=== PATIENT | female | born 1955 | race Caucasian/White ===

== ENCOUNTER 2021-07-28 11:46 | Outpatient (REF) | payer MEDICARE, MEDICAID, SELFPAY ==
[2021-07-28 12:04] LABS: MANUAL DIFF FLAG NO
[2021-07-28 12:29] LABS: Basophils Percent Auto 0.4 % (0-2); Eosinophils Absolute Auto 0.1 X10*3/uL (0.0-0.4); Eosinophils Percent Auto 1.5 % (0-4); Hematocrit 40.4 % (37.0-47.0); Hemoglobin 13.4 g/dl (12.0-16.0); Imm Gran Abs Auto 0.04 X10*3/uL (0.00-0.03); Imm Gran Pct Auto 0.5 % (0.0-0.4); Lymphocytes Absolute Auto 1.4 X10*3/uL (1.2-4.9); Lymphocytes Percent Auto 16.5 % (20-40); Mean Corpuscular HGB Conc 33.2 g/dl (31.0-35.0); Mean Corpuscular Hemoglobin 29.6 pg (27.0-33.0); Mean Corpuscular Volume 89.4 fL (80.0-98.0); Mean Platelet Volume 10.5 fL (9.4-12.3); Monocytes Absolute Auto 0.6 X10*3/uL (0.1-1.2); Monocytes Percent Auto 6.7 % (2-11); Neutrophils Absolute Auto 6.3 x10*3/uL (2.0-8.3); Neutrophils Percent Auto 74.4 % (45-73); Platelet Count 200 X10*3/uL (160-400); Red Blood Count 4.52 X10*6/uL (4.20-5.50); White Blood Count 8.5 X10*3/uL (4.8-10.8)
[2021-07-28 13:03] LABS: Alanine Aminotransferase 17 U/L (0-31); Albumin Level 4.5 g/dL (3.5-5.0); Alkaline Phosphatase 69 U/L (39-117); Anion Gap 10 (12-20); Aspartate Amino Transferase 17 U/L (5-31); Bilirubin Total 0.6 mg/dL (0.0-1.0); Blood Urea Nitrogen 13 mg/dL (9-16); Carbon Dioxide 31 mmol/L (22-29); Chloride 106 mmol/L (96-108); Cholesterol 179 mg/dL; Estimated Glomerular Filt Rate > 60; Glucose Random 122 mg/dL (60-115); HDL Cholesterol 46 mg/dL; LDL Cholesterol Calculated 99 mg/dl; Potassium 5.1 mmol/L (3.3-5.1); Sodium 142 mmol/L (135-145); Total Protein 7.2 g/dL (6.5-8.0); Triglycerides 174 mg/dL
[2021-07-28 13:22] LABS: Thyroid Stimulating Hormone 0.62 uIU/mL (0.32-4.0)
[2021-07-28 13:35] LABS: Vitamin B12 780 pg/mL (200-900)
[2021-07-28 13:44] LABS: Calcium 12.1 mg/dL (8.4-10.2)
== END 2021-07-28 11:47 | disposition home or self-care (01) ==
LOC: HO.LAB 11:46
PROVIDERS: PCP Internal Medicine; Visit Provider Internal Medicine
DX: Z00.01 Encounter for general adult medical examination with abnormal findings (principal); R05.9 Cough, unspecified; I10 Essential (primary) hypertension; F32.9 Major depressive disorder, single episode, unspecified; F02.81 Dementia in other diseases classified elsewhere, unspecified severity, with behavioral disturbance; E78.00 Pure hypercholesterolemia, unspecified
CPT/HCPCS: 36415; 80053; 80061; 82607; 84443; 85025

== ENCOUNTER 2021-08-11 12:07 | Outpatient (REF) | payer MEDICARE, MEDICAID, SELFPAY ==
[2021-08-11 12:59] LABS: Estimated Average Glucose 123 mg/dL; Hemoglobin A1c % 5.9 %
[2021-08-11 13:21] LABS: Alanine Aminotransferase 19 U/L (0-31); Albumin Level 4.2 g/dL (3.5-5.0); Alkaline Phosphatase 63 U/L (39-117); Aspartate Amino Transferase 18 U/L (5-31); Bilirubin Direct 0.2 mg/dL (0.0-0.5); Bilirubin Total 0.6 mg/dL (0.0-1.0); Calcium 11.8 mg/dL (8.4-10.2); Total Protein 6.8 g/dL (6.5-8.0)
[2021-08-11 15:18] LABS: Creatinine Urine 168.59 mg/dL; Microalbum/Creatinine Ratio Ur 7.7 ug/mg cr
== END 2021-08-11 12:08 | disposition home or self-care (01) ==
LOC: HO.LAB 12:07
PROVIDERS: PCP Nurse Practitioner Family; Visit Provider Nurse Practitioner Family
DX: E03.9 Hypothyroidism, unspecified (principal); E11.9 Type 2 diabetes mellitus without complications; E78.5 Hyperlipidemia, unspecified; I10 Essential (primary) hypertension; R41.3 Other amnesia; E83.52 Hypercalcemia; Z78.0 Asymptomatic menopausal state; Z98.61 Coronary angioplasty status
CPT/HCPCS: 36415; 80076; 82043; 82310; 83036

== ENCOUNTER 2021-08-27 13:16 | Outpatient (REF) | payer MEDICARE, MEDICAID, SELFPAY ==
--- NOTE | ~2021-08-27 | MM_ITS ---
EXAMINATION: BONE DENSITOMETRY CLINICAL INDICATION: Asymptomatic menopausal state. COMPARISON: Baseline BD dated 08/22/2018. TECHNIQUE: Using a [employer] DXA System (software version: 13.1) manufactured by [employer], dual-energy x-ray absorptiometry was performed of the lumbar spine and left hip. The images are of good technical quality. Summary results are attached. FINDINGS: AP SPINE L1-L4: Current: BMD 1.247 g/cm2, Z-score 2.1, T-score 0.6, normal, 4.1% increase from baseline (<5% change is not significant). Baseline: BMD 1.198 g/cm2. LEFT FEMUR, NECK: Current: BMD 0.688 g/cm2, Z-score -1.0, T-score -2.5, osteoporosis. Baseline: BMD 0.808 g/cm2. LEFT FEMUR, TOTAL: Current: BMD 0.734 g/cm2, Z-score -0.9, T-score -2.2, osteopenia, 13.3% decrease from baseline (<5% change is not significant). Baseline: BMD 0.847 g/cm2. IDENTIFIED RISK FACTORS: Rheumatoid arthritis, osteoporosis, dementia, recurrent falls. Early menopause, secondary osteoporosis, hysterectomy, bilateral oophorectomy. HISTORY OF FRACTURE: None listed. MEDICATIONS: Vitamin D. MM/XR DEXA axial skeleton IMPRESSION: 1. DIAGNOSIS: Osteoporosis based on the lowest T-score value of -2.5 in the femoral neck applying World Health Organization criteria. 2. 10-YEAR FRACTURE RISK PREDICTION, FRAX: According to the guidelines, FRAX calculation should only be performed on patients in the osteopenia bone density category. Therefore, FRAX was not performed on this patient. 3. Treatment Recommendations: NOF guidelines recommend consideration for treatment in postmenopausal women and men age 50 and older presenting with the following: -A hip or vertebral (clinical or morphometric) fracture. -T-score less than or equal to -2.5 at the femoral neck or spine after appropriate evaluation to exclude secondary causes. -Low bone mass at the hip or spine and a 10-year fracture probability by FRAX of greater than or equal to 3% for hip fracture or greater than or equal to 20% for major osteoporotic fracture based on the [place] adapted WHO algorithm. 4. Other Recommendations: All treatment decisions require clinical judgment and consideration of individual patient factors, including patient preferences, comorbidities, previous drug use, risk factors not captured in the FRAX model (e.g. frailty, falls, vitamin D deficiency, increased bone turnover, interval significant decline in bone density) and possible under or overestimation of fracture risk by FRAX. Additional medical evaluation for secondary cause of low bone mineral density may be appropriate. FUTURE SCAN RECOMMENDATION: People with diagnosed cases of osteoporosis or at high risk for fracture should have regular bone mineral density tests. For patients eligible for Medicare, routine testing is allowed once every 2 years. The testing frequency can be increased to one year for patients who have rapidly progressing disease, those who are receiving or discontinuing medical therapy to restore bone mass, or have additional risk factors.
== END 2021-08-27 13:17 | disposition home or self-care (01) ==
LOC: HO.MAMMO 13:16
PROVIDERS: Visit Provider Nurse Practitioner Family
DX: Z13.820 Encounter for screening for osteoporosis (principal); Z78.0 Asymptomatic menopausal state; M81.0 Age-related osteoporosis without current pathological fracture
CPT/HCPCS: 77080

== ENCOUNTER 2021-09-15 12:14 | Outpatient (REF) | payer MEDICARE, MEDICAID, SELFPAY ==
--- NOTE | ~2021-09-15 | XR_ITS ---
EXAMINATION: XR KNEE, RIGHT CLINICAL INFORMATION: Pain COMPARISON: None TECHNIQUE: Four views of the right knee. FINDINGS: Bone alignment is normal. No fracture or dislocation is seen. There is degenerative meniscal calcification at the femoral tibial joints. There is mild lateral femoral tibial joint space narrowing. There are small osteophytes at the patellofemoral joint. There is no joint effusion. XR/XR knee RT 2V IMPRESSION: Mild degenerative changes.
== END 2021-09-15 12:15 | disposition home or self-care (01) ==
LOC: HO.XRAY 12:14
PROVIDERS: Visit Provider Nurse Practitioner Family
DX: G89.29 Other chronic pain (principal); M25.561 Pain in right knee
CPT/HCPCS: 73560

== ENCOUNTER → 2021-10-01 10:09 | Outpatient (BNVA) | payer MEDICARE, MEDICAID, SELFPAY | PROVIDERS: Visit Provider Orthopaedic Surgery | DX: M25.461 Effusion, right knee (principal) | CPT/HCPCS: 20610; 99202; J1100 ==

== ENCOUNTER 2021-10-12 10:27 | Outpatient (REF) | payer MEDICARE, MEDICAID, SELFPAY ==
--- NOTE | ~2021-10-12 | MR_ITS ---
EXAMINATION: MR KNEE WITHOUT CONTRAST, RIGHT CLINICAL INFORMATION: Anterior and posterior right knee pain. Cracking. Pain and swelling. Fall 2010 years ago. COMPARISON: None. TECHNIQUE: MRI of the knee without contrast was performed using routine sequences on a high-field scanner. FINDINGS: MENISCI: Medial Meniscus: Oblique inner margin tear through the posterior body and posterior horn. Lateral Meniscus: Diffuse attenuation and irregularity of the anterior root, anterior horn, and meniscal body with a dominant oblique tear at the meniscal body. The posterior horn and root demonstrate inner margin fraying/tearing. LIGAMENTS: Cruciate: Intact Collateral: Mild edema adjacent to the medial collateral ligament which could represent a grade 1 sprain. Intact fibular collateral ligament. EXTENSOR MECHANISM: Intact ARTICULAR CARTILAGE/BONE: Patellofemoral Compartment: Patellar median ridge and central trochlea articular cartilage thinning. Tiny marginal osteophytes. Medial Compartment: Weightbearing articular cartilage signal heterogeneity and surface irregularity with tiny marginal osteophytes. Lateral Compartment: Posterior lateral tibial plateau full-thickness articular cartilage loss with underlying subchondral cystic change. Articular cartilage thinning to the posterior non-weightbearing lateral femoral condyle. Small marginal osteophytes. JOINT FLUID AND BURSAE: Small joint effusion and small Foley's cyst. Anterior lobulated synovitis versus loose body adjacent to the lateral meniscus measuring up to 0.7 cm. MR/MR knee RT wo con IMPRESSION: 1. Oblique inner margin tear of the medial meniscus posterior body and posterior horn. 2. Diffuse complex tearing of the lateral meniscus involving the anterior root, anterior horn, and meniscal body where there is a dominant oblique inner margin component. Inner margin fraying/tearing of the posterior horn and root. 3. Probable grade 1 sprain the medial collateral ligament. 4. [id number] lateral as well as mild patellofemoral and medial compartment osteoarthritis. Small joint effusion and small Foley's cyst. Focal synovitis versus loose body adjacent to the anterior horn of the lateral meniscus measuring up to 0.7 cm.
== END 2021-10-12 10:28 | disposition home or self-care (01) ==
LOC: HO.MRI 10:27
PROVIDERS: Visit Provider Orthopaedic Surgery
DX: M25.461 Effusion, right knee (principal)
CPT/HCPCS: 73721

== ENCOUNTER → 2021-10-29 10:15 | Outpatient (BNVA) | payer OTHER, SELFPAY | PROVIDERS: Visit Provider Orthopaedic Surgery | DX: M17.11 Unilateral primary osteoarthritis, right knee (principal) | CPT/HCPCS: 99212 ==

== ENCOUNTER 2024-09-14 15:57 | Outpatient (AMB) | payer MEDICARE, MEDICAID, SELFPAY ==
--- NOTE | 2024-09-14 16:04 | A.OFFPC_ITS ---
Vital Signs 09/14/24 16:08 Height 5 ft 1.02 in Weight 104 lb 6 oz BMI 19.7 BP 130/80 Blood Pressure Location Lt brachial Position Sitting Pulse 70 Pulse Source Pulse Oximeter Temp 97.1 F Temp Source Temporal Artery Scan Pulse Oximetry (%) 96 Oxygen Delivery Method Room Air Intake Visit Reasons: establish care/ overdue appointment Intake Note: Patient is a new patient here to Re-establish care for Chronic pain, Osteoporosis, Anxiety, Depression, Hypothyroid, OA, HLD, HTN, Acid reflux. Transferring care from . Medical records Have not been requested and have received. Falafel Cart Cook Required: Yes Falafel Cart Cook Language: South Korean Assistant Grocery Store Manager: Present Accompanied by: Daughter Allergies aspirin Allergy (Unknown, Verified 09/14/24 16:12) red eyes naproxen [Naprosyn] Allergy (Unknown, Verified 09/14/24 16:12) Unknown dexamethasone Adverse Reaction (Intermediate, Verified 09/14/24 16:12) Unknown Medication List - Last Reconciled 09/14/24 by Anya Tan PA-C amlodipine 2.5 mg PO DAILY atorvastatin 40 mg PO DAILY clopidogrel 75 mg PO DAILY donepezil 5 mg PO DAILY escitalopram oxalate 10 mg PO DAILY famotidine 20 mg PO DAILY isosorbide mononitrate ER 120 mg PO DAILY metformin 500 mg PO DAILY metoprolol succinate ER 50 mg PO DAILY olmesartan 40 mg PO DAILY omega-3 fatty acids 1,000 mg PO DAILY pantoprazole 40 mg PO DAILY Tobacco use date assessed: 09/14/24 Fall risk assessment: No Falls in past year Last assessed Fall Risk: 09/14/24 Dental Screening Dental Screen Date: 09/14/24 Did you have a dental visit in the last 12 months?: No Did you have a dental problem in the last 6 months where you did not have access to dental care?: No Was dental information given to patient?: No HPI establish care/ overdue appointment HPI Details 68-year-old female with past medical his tory of hypertension, GERD, aortic valve insufficiency, hypothyroid, anxiety, depression, osteoporosis coming to the office for the 1st time. Presenting with a need for medication refills and evaluation of chronic conditions. Type 2 Diabetes Mellitus is well-managed with a recent A1c of 5.1, leading to a reevaluation of the need for metformin. Dementia is managed minimally, with ongoing cognitive fluctuations. Depressive symptoms noted, previously managed with escitalopram with a transition to mirtazapine to also aid sleep issues. The GERD continues to present symptoms controlled by pantoprazole and famotidine. Osteoporosis is noted without recent specialty follow-up. Cardiovascular history includes myocardial infarction and stroke, both considered under current cardiology oversight. Hip pain from previous muscle tear and associated disc issues have not been actively managed with suggested referrals for orthopedic review. She is seeing her retail equipment associate on Tuesday. Patient presents today with her daughter. sales performance analyst [id number] Nita, [id number] Edgardo used for the duration of this visit. [facility], [facility] Medical History CVA (cerebral vascular accident) Surgical History History of cholecystectomy History of left knee surgery Family History Other Mental health disorder Substance use disorder Social History Housing: House Alcohol intake: never Patient Tobacco Use Status: Never used Tobacco e-Cigarette/Vaping Use: Never Used Second Hand Smoke Exposure: No service: No Current occupational status: retired and disabled Cognitive needs: No Hearing needs: No Vision needs: Yes (glasses) Questionnaire PHQ-9 Over the last 2 weeks, how often have you been bothered by any of the following problems? 1. Little interest or pleasure in doing things: nearly every day 2. Feeling down, depressed, or hopeless: several days 3. Trouble falling or staying asleep, or sleeping too much: several days 4. Feeling tired or having little energy: nearly every day 5. Poor appetite or overeating: nearly every day Depression Screening Interpretation: Positive Depression Screening Follow-up: Existing condition and Change in Medication Depression Screening Done: Yes Source: Developed by Drs. Albert Guerin, Cathy Lopez, Eddie Hopkins and colleagues, with an educational jed from [email or web address]. Thrive Questionnaire Date Thrive assessed: 09/14/24 I am a: Patient What is your living situation today?: I have a steady place to live Within the past 12 months, did the food you bought not last and you didn't have the money to get more?: Never true Within the past 12 months, did you worry whether your food would run out before you got money to buy more?: Never true Do you have trouble paying for medicines?: No Do you have trouble getting transportation to medical appointments?: No Do you have trouble paying your heating and electricity bill?: No Do you have trouble taking care of your child, family member or friend?: No Do you have trouble with day-to-day activities such as bathing, preparing meals, shopping, managing finances, etc.?: No Are you currently unemployed and looking for a job?: No Are you interested in more education?: No Please select the resources that you would like help with: None Currently or been in a relationship where the following occur: No concerns reported THRIVE Score: 0 AUDIT C Alcohol Use Questionnaire (AUDIT-C) 1. How often do you have a drink containing alcohol?: Never Total Score: 0 JEANNINE-7 AMB Questionnaire JEANNINE-7 Date JEANNINE - 7 assessed: 09/14/24 Feeling nervous, anxious, or on edge: 0 = Not at all Not being able to stop or control worryin = Not at all Worrying too much about different things: 0 = Not at all Trouble relaxin = Not at all Being so restless that it is hard to sit still: 0 = Not at all Becoming easily annoyed or irritable: 0 = Not at all Feeling afraid as if something awful might happen: 0 = Not at all Total JEANNINE-7 score (0-4 normal; 5-9 mild; 10-14 moderate; 15-21 severe): 0 Source: Developed by Drs. Albert Guerin, Cathy Lopez, Eddie Hopkins and colleagues, with an educational jed from [email or web address]. JEANNINE-7 Assessment Billing JEANNINE-7 Assessment Tool: JEANNINE-7 Assessment 33698 Review of Systems Const Denies body aches, Denies chills, Denies fever(s), Denies headache(s) and Denies poor appetite Eyes Reports no additional complaints ENT Denies dizziness, Denies headache(s) and Denies odynophagia Card Denies chest pain, Denies lightheadedness and Denies dyspnea Resp Denies dyspnea GI Denies nausea, Denies odynophagia and Denies vomiting Reports no additional complaints Musc Reports no additional complaints and Denies abnormal gait Skin/Breast Reports system reviewed and no additional complaints, except as documented Neuro Denies abnormal gait, Denies dizziness and Denies headache(s) Psych Reports no additional complaints Physical exam (Primary Care) Vital Signs: Last Vital Signs Temp 97.1 F 09/14/24 16:08 Pulse 70 09/14/24 16:08 BP 130/80 09/14/24 16:08 Pulse Ox 96 09/14/24 16:08 Oxygen Delivery Method Room Air 09/14/24 16:08 BMI result Body Mass Index 19.7 Tobacco/Smoking Status: Tobacco use Status Tobacco use date assessed 09/14/24 09/14/24 16:11 Patient Tobacco Use Status Never used Tobacco 09/14/24 16:11 e-Cigarette/Vaping Use Never Used 09/14/24 16:11 Depression Screening Interpretation: Positive Depression Screening Follow-up: Existing condition and Change in Medication Thrive Assessment: Date of Thrive Assessment Date Thrive assessed 09/14/24 09/14/24 16:11 Currently or been in a relationship where the following occur: No concerns reported Const General: cooperative, healthy appearing, comfortable and no acute distress Orientation/consciousness: patient oriented x3 HENMT Head: Yes normocephalic Ears: hearing grossly normal bilaterally General nose exam: Normal external nose present Eyes General: appearance normal, both eyes and all related structures Conjunctivae: conjunctivae normal Neck Neck: Yes full ROM and Yes no lymphadenopathy Resp Effort & Inspection: normal respiratory effort Auscultation: clear to auscultation bilaterally, no crackles, no rales, no rhonchi and no wheezes Cardio Rate: regular rate Rhythm: regular rhythm Skin General skin exam: no rashes or lesions noted Neuro General: patient oriented x3 Gait exam (Neuro): Normal gait present Extrem General: Yes normal to inspection, Yes full ROM and No edema Psych Affect: normal affect Attitude: cooperative Insight: Good insight present (Psych) Judgement: Good judgement present (Psych) Results AMB Hemoglobin A1c AMB Hemoglobin A1c 5.1 % Last Edit by TANIA Sanchez on 09/14/24 16 :38 Results Reviewed Results Reviewed: Laboratory Last Values Hgb A1c (Clinic) 5.1 % (4.0-6.0) 09/14/24 16:27 Coding Level of Care Code New Pt Level 4 (39672) Diagnoses Osteoporosis M81.0 Essential hypertension I10 Acid reflux K21.9 Coronary angioplasty status Z98.61 Nonrheumatic aortic (valve) insufficiency I35.1 Hyperlipidemia E78.5 Hypothyroid E03.9 Anxiety and depression F41.9; F32.A Diabetes mellitus E11.9 Coronary artery disease I25.10 Left hip pain M25.552 Hypophonia R49.8 Additional Codes JEANNINE-7 Assessment Billing - JEANNINE-7 Assessment Tool: JEANNINE-7 Assessment [id number] ( [id number]) Assessment & Plan Assessment & Plan (1) Osteoporosis: Code(s): M81.0 - Age-related osteoporosis without current pathological fracture Category: Medical Plan: Referral was placed to endocrinology today for management. (2) Essential hypertension: Code(s): I10 - Essential (primary) hypertension Category: Medical Plan: Continue on current blood pressure medication. Avoid salt intake and encourage healthy diet and regular exercise. (3) Acid reflux: Code(s): K21.9 - Gastro-esophageal reflux disease without esophagitis Category: Medical Plan: Avoid trigger foods such as citrus, tomato products, soda, caffeine, spicy foods and other foods that may be irritating to your stomach. Avoid laying flat 3-4 hours after eating and elevate the head of the bed 30 degrees to prevent acid from moving into the esophagus. Continue on Pantoprazole and Famotidine (4) Coronary angioplasty status: Comment: 4 mesh was placed (per note) Code(s): Z98.61 - Coronary angioplasty status Category: Surgical Plan: Patient has follow up with retail equipment associate on Tuesday. Advised tight control of blood pressure, cholesterol and blood sugar (5) Nonrheumatic aortic (valve) insufficiency: Code(s): I35.1 - Nonrheumatic aortic (valve) insufficiency Category: Medical Plan: Continue to follow up with retail equipment associate. Unclear of when her last echocardiogram was. (6) Hyperlipidemia: Code(s): E78.5 - Hyperlipidemia, unspecified Category: Medical Plan: Avoid foods that are high in cholesterol such as red meat, fried foods, eggs and baked goods. Triglyceride goal of less than 150 and LDL goal of less than 70. Continue on Atorvastatin (7) Hypothyroid: Code(s): E03.9 - Hypothyroidism, unspecified Category: Medical Plan: Patient has been reported hypothyroid not currently on medical management plan to obtain labs. (8) Anxiety and depression: Code(s): F41.9 - Anxiety disorder, unspecified; F32.A - Depression, unspecified Category: Medical Plan: Patient having history of anxiety and depression previously treated with escitalopram however patient is on donepezil and concern for possible QT prolongation. Plan to start on mirtazapine for both sleep and anxiety and depression management. Discussed side effects and advised patient to reach out she develops any symptoms. (9) Diabetes mellitus: Code(s): E11.9 - Type 2 diabetes mellitus without complications Category: Medical Plan: Decrease the amount of carbohydrates such as pasta, bread, rice, and potatoes and limit the amount of sweets. Although fruits are generally healthy they should be eaten in moderation as they are still high in sugar. Hemoglobin A1c goal of less than 7%. A1c in the clinic today 5.1% discontinue metformin at this time and plan to repeat A1c in 3 months. (10) Coronary artery disease: Code(s): I25.10 - Atherosclerotic heart disease of [place] coronary artery without angina pectoris Category: Medical Plan: Patient having history of coronary artery disease and having mesh placed. She has a appointment with Cardiology on Tuesday. Plan to continue on clopidogrel until otherwise instructed by Cardiology. Plan to have LDL goal less than 70, blood pressure management with goal blood pressure less than 130/90 and good control of blood sugars. (11) Left hip pain: Code(s): M25.552 - Pain in left hip Category: Medical Plan: Patient complaining of left hip pain previously evaluated in [place] x-ray obtained showing degenerative disease and lumbar degenerative disc disease. Referral was placed to physical therapy for treatment and orthopedics as well. (12) Hypophonia: Code(s): R49.8 - Other voice and resonance disorders Category: Medical Plan: Patient complaining of a quiet voice plan to obtain speech and language evaluation. Plan This note was constructed using voice recognition software. While every effort has been made to ensure accuracy and senior security analyst, still areas may have been included sometimes these areas may affect the content or meeting of the given symptoms. Total time spent caring for the patient today was 45 minutes. This includes time spent before the visit reviewing the chart, time spent during the visit, and time spent after the visit and documentation. Patient was informed and verbally consented to the use of an ambient scribe for clinic note documentation during this visit. Orders: Orders AMB Hemoglobin A1c Today E11.9 - Type 2 diabetes mellitus without complications Complete Blood Count Auto Diff Today Z00.00 - Encounter for general adult medical examination without abnormal findings Free T4 (Free Thyroxine) Today Z00.00 - Encounter for general adult medical examination without abnormal findings PT Evaluation and Treatment Today M25.552 - Pain in left hip Comprehensive Met. Panel Today Z00.00 - Encounter for general adult medical examination without abnormal findings Lipid Panel Today E78.00 - Pure hypercholesterolemia, unspecified Vitamin B12 and Folate Today Z00.00 - Encounter for general adult medical examination without abnormal findings Vitamin D 25-OH Total Today Z00.00 - Encounter for general adult medical examination without abnormal findings TSH reflex Free T4 Today Z00.00 - Encounter for general adult medical examination without abnormal findings Referrals Orthopedics Referral M25.552 - Pain in left hip Speech and Hearing Referral R49.8 - Other voice and resonance disorders Endocrinology Referral M81.0 - Age-related osteoporosis without current pat hological fracture Psychiatry Outpatient Consultation Service F32.A - Depression, unspecified, F41.9 - Anxiety disorder, unspecified Medications: New pantoprazole 40 mg PO DAILY 90 tabs 0RF donepezil 5 mg PO DAILY 90 tabs 0RF mirtazapine 7.5 mg PO BEDTIME 30 tabs 1RF Refilled clopidogrel 75 mg PO DAILY 90 tabs 0RF amlodipine 2.5 mg PO DAILY 90 tabs 0RF famotidine 20 mg PO DAILY 90 tabs 0RF metoprolol succinate ER 50 mg PO DAILY 90 tabs 0RF olmesartan 40 mg PO DAILY 90 tabs 0RF atorvastatin 40 mg PO DAILY 90 tabs 0RF Discontinued isosorbide mononitrate ER Discontinued Reason: Patient no longer taking 120 mg PO DAILY 90 tabs 0RF
[2024-09-14 16:08] VITALS: BP 130/80; PULSE 70; TEMP 36.2; O2SAT 96; BMI 19.7
--- OUTSIDE RECORDS SUMMARY | 2024-09-14 16:13 | XMS_ITS | Clinical Summary ---
Author Organization [facility] Address [address] [place] [address] Care Team Providers Care Cafeteria Director Name Role Phone Unavailable Primary Care Provider Unavailabl e Source Comments PLEASE NOTE, if this patient is a minor, it may be UNLAWFUL to discuss sensitive information that is contained in these records (such as FAMILY PLANNING, MENTAL HEALTH or SUBSTANCE ABUSE) with the minor patient's parent or other person without the patient's specific authorization.CARLOS Allergies Active Allergy Reactions Criticality Noted Date Comments Aspirin 09/18/2021 Medications amLODIPine (NORVASC) 2.5 mg tablet 09/10/2021 Active atorvastatin (LIPITOR) 40 mg tablet 09/02/2021 Active benzonatate (TESSALON) 200 mg capsule TAKE 1 CAPSULE BY MOUTH 3 TIMES A DAY NEEDED FOR COUGH 07/23/2021 Active clopidogreL (PLAVIX) 75 mg tablet Take 75 mg by mouth once daily 08/23/2021 Active erythromycin (ROMYCIN) 5 mg/gram (0.5 %) ophthalmic ointment APPLY TO LEFT EYE FOUR TIMES DAILY 07/23/2021 Active escitalopram oxalate (LEXAPRO) 10 mg tablet Take 10 mg by mouth once daily 08/23/2021 Active famotidine (PEPCID) 20 mg tablet 09/10/2021 Active isosorbide mononitrate (IMDUR) 120 mg 24 hr tablet 120 mg once daily 08/24/2021 Active metoprolol succinate (TOPROL-XL) 50 mg 24 hr tablet 09/10/2021 Act tena nitroglycerin (NITROSTAT) 0.4 mg SL tablet 09/10/2021 Active OLANZapine (ZYPREXA) 5 mg tablet 09/10/2021 Active olmesartan (BENICAR) 40 mg tablet 40 mg once daily 07/27/2021 Active omega-3 fatty acids-fish oil 300-1,000 mg cap 1 Capsule once daily 08/23/2021 Active pantoprazole (PROTONIX) 40 mg EC tablet ONE ORAL TAKE ONE TABLET BY MOUTH EVERY DAY 07/27/2021 Active simvastatin (ZOCOR) 40 mg tablet 40 mg nightly at bedtime 07/27/2021 Active Active Problems No known active problems Social History Tobacco Use Types Packs/Day Years Used Date Smoking Tobacco: Never Alcohol Use Standard Drinks/Week Comments Never 0 (1 standard drink = 0.6 oz pur e alcohol) Social Connections Answer Date Recorded Connectedness 0 02/03/2024 Financial Resource Strain Answer Date R ecorded Financial Resource Strain 0 2021 Stress Answer Date Recorded Stress 0 09/18/2021 Physical Activity Answer Date Recorded Physical Activity 0 09/18/2021 Food Insecurity Answer Date Recorded Food 0 02/16/2024 Transportation Needs Answer Date Record ed Transportation 0 09/18/2021 Housing Stability Answer Date Recorded Housing 0 09/18/2021 Safety and Environment Answer Date Cipriano rded Safety 0 09/18/2021 Utilities Answer Date Recorded Utilities 0 09/18/2021 Employment Answer Date Recorded Stress 0 02/03/2024 Comments Unknown Sex and Gender Information Value Date Recorded Sex Assigned at Female 09/18/2021 11:20 AM PDT Legal Sex Female 7:32 AM PDT Gender Identity Female 09/18/2021 11:20 AM PDT Sexual Orientation Straight 09/18/2021 11 :20 AM PDT Last Filed Vital Signs Vital Sign Reading Time Taken Comments Blood Pressure 125/75 09/18/2021 1:42 PM EDT Pulse 63 09/18/2021 1:42 PM EDT Temperature - - Respiratory Rate - - Oxygen Saturation - - Inhaled Oxygen Concentration - - Weight - - Height - - Body Mass Index - - Plan of Treatment Health Maintenance Due Date Last Done Comments Diabetes Screening 1954 Hepatitis C Screening 1954 Lipid Screening 1954 Tobacco Screening 1954 Imm-DTaP/Tdap/Td (1 - Tdap) 1973 Breast Cancer Screening (Mammogram) 1994 CT Colonography 10/03/1999 Colonoscopy 10/03/1999 Colorectal Cancer Screening 10/03/1999 FIT/gFOBT 10/03/1999 Fecal DNA 10/03/1999 Flexible Sigmoidoscopy 10/03/1999 Imm-Pneumococcal 65+ (1 of 1 - PCV) 2004 Imm-Zoster, Recombinant (1 of 2) 2004 Bone Density Screening 10/03/2019 Falls Prevention 10/03/2019 Hypertension Screening (#1) 09/18/2022 [id number] ( season) 2024 Imm-Influenza (#1) 2024 Alcohol and Drug Screen 05/23/2024 Depression Annual Screen 05/23/2024 Insurance [employer] MEDICAID Member Subscriber Plan / Payer (Ef fective 2021-Present) Name:Graciela Lanye Relation to Subscriber:Self Name:Graciela Layne Payer ID:[id number] Group ID:Not on file Type:Indemnity Address: [address] MEDICAID DENTAL Member Subscriber Plan / Payer (Ef fective 2021-Present) Name:Graciela Layne Relation to Subscriber:Self Name:Graciela Layne Payer ID:[id number] Group ID:Not on file Type:Medicaid Address: [address] [place] [address] Advance Directives Documents on File Type Date Recorded 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
--- OUTSIDE RECORDS SUMMARY | 2024-09-14 16:13 | XMS_ITS | Encounter Summary ---
Author Organization [facility] Address [address] [place] [address] Care Team Providers Care Accounting Methods Analyst Name Role Phone Unavailable Primary Care Provider Unavailabl e Encounter Details Date Type Department Care Team (Late st Contact Info) Description 10/28/2021 Dental Interim Note [facility] [address] [place] [phone] Ashley Ashford DMD [address] [place] [address] Social History Tobacco Use Types Packs/Day Years Used Date Smoking Tobacco: Never Alcohol Use Standard Drinks/Week Comments Never 0 (1 standard drink = 0.6 oz pur e alcohol) Social Connections Answer Date Recorded Social Connections and Isolation 0 09/18/2021 Financial Resource Strain Answer Date R ecorded Financial Resource Strain 0 2021 Stress Answer Date Recorded Stress 0 09/18/2021 Physical Activity Answer Date Recorded Physical Activity 0 09/18/2021 Food Insecurity Answer Date Recorded Food 0 09/18/2021 Transportation Needs Answer Date Record ed Transportation 0 09/18/2021 Housing Stability Answer Date Recorded Housing 0 09/18/2021 Safety and Environment Answer Date Cipriano rded Safety 0 09/18/2021 Utilities Answer Date Recorded Utilities 0 09/18/2021 Employment Answer Date Recorded Employment 0 09/18/2021 Comments Unknown Sex and Gender Information Value Date Recorded Sex Assigned at Female 09/18/2021 11:20 AM PDT Legal Sex Female 7:32 AM PDT Gender Identity Female 09/18/2021 11:20 AM PDT Sexual Orientation Straight 09/18/2021 11 :20 AM PDT documented as of this encounter Plan of Treatment Not on file documented as of this encounter Visit Diagnoses Not on filedocumented in this encounter
--- OUTSIDE RECORDS SUMMARY | 2024-09-14 16:13 | XMS_ITS | Clinical Summary ---
Author Organization [facility] Address [address] [place] [address] Phone Care Team Providers Care Asic Verification Engineer Name Role Phone Reynaldo Khoury MD Primary Care Provider [phone] Medications alendronate (FOSAMAX) 70 mg tablet Take 1 tablet (70 mg total) by mouth every 7 (seven) days. Active amLODIPine (NORVASC) 2.5 mg tablet Take 1 tablet (2.5 mg total) by mouth 1 (one) time each day. Active atorvastatin (LIPITOR) 40 mg tablet Take 1 tablet (40 mg total) by mouth 1 (one) time each day. 08/27/2021 Active clopidogreL (PLAVIX) 75 mg tablet Take 1 tablet (75 mg total) by mouth 1 (one) time each day. Active escitalopram (LEXAPRO) 10 mg tablet Take 1 tablet (10 mg total) by mouth 1 (one) time each day. Active famotidine (PEPCID) 20 mg tablet Take 1 tablet (20 mg total) by mouth 1 (one) time each day. Active isosorbide mononitrate (IMDUR) 120 mg 24 hr tablet Take 1 tablet (120 mg total) by mouth 1 (one) time each day. Active metoprolol succinate (TOPROL-XL) 50 mg 24 hr tablet Take 1 tablet (50 mg total) by mouth 1 (one) time each day. 09/06/2018 Active OLANZapine (ZyPREXA) 5 mg tablet Take 1 tablet (5 mg total) by mouth at bedtime. Active olmesartan (BENICAR) 40 mg tablet Take 1 tablet (40 mg total) by mouth 1 (one) time each day. Active omega-3 acid ethyl esters (LOVAZA) 1 gram capsule Take 1 capsule (1,000 mg total) by mouth 1 (one) time each day. Active Active Problems Problem Noted Date Diagnosed Date Hypercalcemia 08/27/2021 Palpitations 08/27/2021 Overview (09/10/2024): w/ chest pain of mixed characteristics. Holter and 2-D transthoracic ECHO done 03/12/2021. TIA (transient ischemic attack) 08/27/2021 Coronary artery disease 08/21/2021 Overview (09/10/2024): Hx angioplasty. Last Assessment & Plan: 65 year old female patient with history of coronary artery disease status post stent to circumflex artery in 2015 and stent to the mid LAD in May 2018 (left heart cath at that time showed a patent circumflex stent), arterial hypertension, hyperlipidemia, osteoarthritis, and hyperparathyroidism. She did bring a packet of medical records from [facility] in [place] that are as recent as March 2021. She reports intermittent chest discomfort at rest or with exertion. She is on medical therapy with Plavix, simvastatin, beta milagros. She is also on isosorbide mononitrate 120 mg orally daily and amlodipine 2.5 mg orally daily for anti anginals. Given her known coronary artery disease as well as multiple cardiac risk factors including hypertension and hyperlipidemia I recommended we proceed with a nuclear stress test to reevaluate for any new areas of ischemia. Patient has arthritis in her knees will not feel to tolerate a treadmill. She is ordered for a pharmacologic nuclear stress test. She will be on her meds for this. Patient advised to seek emergency medical attention by calling 911 if they were to develop severe dyspnea, chest pain that did not resolve with rest or nitroglycerin, or if they were to faint. Hyperlipidemia 08/21/2021 Overview (09/10/2024): Last Assessment & Plan: Patient with history of hyperlipidemia. She is on simvastatin 40 mg orally daily. I do not see any recent lipid panel. She is given a lab slip to check a fasting lipid panel. Given her history of CAD her goal LDL is less than 70. Hypertension 08/21/2021 Overview (09/10/2024): Last Assessment & Plan: Patient with history of hypertension. Her blood pressure is well controlled today. Encounters Date Type Department Care Team Description 09/14/2024 Telephone [facility] [address] [place] [address] Reynaldo Khoury MD from Last 3 Months Surgical History Surgery Date Site/Laterality Comments ANGIOPLASTY PROCEDURE: HISTORICAL ANGIOPLASTY Medical History Medical History Date Comments History of percutaneous nolan nary intervention 08/21/2021 DX:History of percutaneous c oronary intervention Coronary artery disease 08/21/2021 DX:Coron isabel artery disease; COMMENT: Hx angioplasty Hypertension 08/21/2021 DX:Hypertension Hyperlipidemia 08/21/2021 DX:Hyperlipidemi a Nonrheumatic tricuspid (valv e) insufficiency 08/27/2021 DX:Nonrheumatic tricuspid (v alve) insufficiency; COMMENT: Nonrheumatic tricuspid and pulmonary valve insufficiency as well. Fatty liver 08/27/2021 DX:Fatty liver Hypothyroidism 08/27/2021 DX:Hypothyroidis m Osteoarthritis 08/27/2021 DX:Osteoarthriti s Cholelithiasis 08/27/2021 DX:Cholelithiasi s; COMMENT: 10/16/2020: Cleared for cholecystectomy surg tx as scheduled, no Op Report. Hypercalcemia 08/27/2021 DX:Hypercalcemia Palpitations 08/27/2021 DX:Palpitations; COMMENT: w/ chest pain of mixed characteristics. Holter and 2-D transthoracic ECHO done 03/12/2021. Social History Tobacco Use Types Packs/Day Years Used Date Smoking Tobacco: Never Smokeless Tobacco: Never Comments Unknown Sex and Gender Information Value Date Recorded Sex Assigned at Not on file Legal Sex Female 6:15 PM EST Gender Identity Not on file Sexual Orientation Not on file Obstetrics History Last Filed Vital Signs Vital Sign Reading Time Taken Comments Blood Pressure 140/80 09/04/2021 10:14 AM EDT Si tting L Arm Pulse 57 09/04/2021 10:14 AM EDT Temperature - - Respiratory Rate - - Oxygen Saturation - - Inhaled Oxygen Concentration - - Weight 68 kg (150 lb) 09/04/2021 9:50 AM EDT Height 154.9 cm (5' 1 ) 09/04/2021 9:50 AM EDT Body Mass Index 28.34 09/04/2021 9:50 AM EDT Plan of Treatment Upcoming Encounters Date Type Department Care Team (Late st Contact Info) Description 09/17/2024 10:20 AM EDT Office Visit [facility] [address] [place] [address] Castillo Grace MD [address] [place] [address] [address] [place] [address] Health Maintenance Due Date Last Done Comments Breast Cancer Screening 1954 DTaP,Tdap,and Td Vaccines (1 - Tdap) 1973 Pneumococcal Vaccine: 50+ Ye ars (1 of 1 - PCV) 2004 Zoster Vaccines (1 of 2) 2004 RSV Immunization Adult Patie nts (1 - Risk 60-74 years 1-dose series) 2014 Cholesterol Screening (Lipid Panel) 04/24/2022 Colorectal Cancer Screening: Colonoscopy 04/24/2022 Depression Screening 04/24/2022 Falls Risk Assessment 04/24/2022 Hepatitis C Screening 04/24/2022 Medicare Annual Wellness Visit 04/24/2022 Osteoporosis Screening (Bone Density Screening) 04/24/2022 Social Influencers of Health Screening 04/24/2022 Hypertension/CHF/CAD Annual BMP Blood Test 05/02/2022 COVID-19 Vaccine (2023-2 5 season) 2024 Influenza Vaccine (Season Ended) 2025 HIB Vaccines Aged Out No longer eligi ble based on patient's age to complete this topic HPV Vaccines Aged Out No longer eligi ble based on patient's age to complete this topic Hepatitis A Vaccines Aged Out No long er eligible based on patient's age to complete this topic Hepatitis B Vaccines Aged Out No long er eligible based on patient's age to complete this topic IPV Vaccines Aged Out No longer eligi ble based on patient's age to complete this topic MMR Vaccines Aged Out No longer eligi ble based on patient's age to complete this topic Meningococcal ACWY Vaccine Aged Out N o longer eligible based on patient's age to complete this topic Meningococcal B Vaccine Aged Out No l onger eligible based on patient's age to complete this topic RSV Immunization Patients Un titus 20 months Aged Out No longer eligible b ased on patient's age to complete this topic Varicella Vaccines Aged Out No longer eligible based on patient's age to complete this topic Insurance MED[place] - [place] MEDICARE [place] Care Teams Asic Verification Engineer Relationship Specialty Start Date End Date Reynaldo Khoury MD [facility] [address] [place] [address] [address] [place] [address] PCP - General 07/19/18
--- OUTSIDE RECORDS SUMMARY | 2024-09-14 16:13 | XMS_ITS | Encounter Summary ---
Author Organization [facility] Address [address] [place] [address] Care Team Providers Care Outside Residential Sales Professional Name Role Phone Reynaldo Khoury MD Primary Care Provider +- [phone] Encounter Details Date Type Department Care Team (Late st Contact Info) Description 09/14/2024 Telephone [place] [address] [place] [phone] Reynaldo Khoury MD [facility] [address] [place] [address] [address] [place] [address] Social History Tobacco Use Types Packs/Day Years Used Date Smoking Tobacco: Never Smokeless Tobacco: Never Comments Unknown Sex and Gender Information Value Date Recorded Sex Assigned at Not on file Legal Sex Female 6:15 PM EST Gender Identity Not on file Sexual Orientation Not on file documented as of this encounter Plan of Treatment Upcoming Encounters Date Type Department Care Team (Late st Contact Info) Description 09/17/2024 10:20 AM EDT Office Visit [facility] [address] [place] [phone] Castillo Grace MD [address] [place] [address] [address] [place] [address] documented as of this encounter Visit Diagnoses Not on filedocumented in this encounter Care Teams Outside Residential Sales Professional Relationship Specialty Start Date End Date Reynaldo Khoury MD [facility] [address] [place] [address] [address] [place] [address] PCP - General 07/19/18 documented as of this encounter
== END 2024-09-14 17:01 | disposition home or self-care (01) ==
LOC: HO.HMCH 15:58
DX: M81.0 Age-related osteoporosis without current pathological fracture (principal); I10 Essential (primary) hypertension; K21.9 Gastro-esophageal reflux disease without esophagitis; E11.9 Type 2 diabetes mellitus without complications; Z98.61 Coronary angioplasty status; I35.1 Nonrheumatic aortic (valve) insufficiency; E78.5 Hyperlipidemia, unspecified; E03.9 Hypothyroidism, unspecified; F41.9 Anxiety disorder, unspecified; F32.A Depression, unspecified; I25.10 Atherosclerotic heart disease of native coronary artery without angina pectoris; M25.552 Pain in left hip

== ENCOUNTER → 2024-09-14 15:57 | Outpatient (BNVA) | payer MEDICARE, MEDICAID, SELFPAY | DX: M81.0 Age-related osteoporosis without current pathological fracture (principal); I10 Essential (primary) hypertension; K21.9 Gastro-esophageal reflux disease without esophagitis; I35.1 Nonrheumatic aortic (valve) insufficiency; E78.5 Hyperlipidemia, unspecified; E03.9 Hypothyroidism, unspecified; F41.9 Anxiety disorder, unspecified; F32.A Depression, unspecified; E11.9 Type 2 diabetes mellitus without complications; I25.10 Atherosclerotic heart disease of native coronary artery without angina pectoris; M25.552 Pain in left hip; R49.8 Other voice and resonance disorders; Z98.61 Coronary angioplasty status | CPT/HCPCS: 83036; 96127; 99202 ==

== ENCOUNTER 2024-10-30 08:41 | Outpatient (REF) | payer MEDICARE, SELFPAY ==
[2024-10-30 08:58] LABS: MANUAL DIFF FLAG NO
--- OUTSIDE RECORDS SUMMARY | 2024-10-30 09:02 | XMS_ITS | Clinical Summary ---
Author Organization [facility] Address [address] [place] [address] Care Team Providers Care Media Professional Name Role Phone Unavailable Primary Care Provider [...] 40 mg nightly at bedtime 07/27/2021 Active amoxicillin (AMOXIL) 500 mg capsuleIndicatio ns:Tooth infection Take one (1) Tablet by mouth every eight (8) hours until finished, for dental infection. 21 Capsule 09/28/2024 Active Active Problems No known active problems Encounters Date Type Department Care Team Description 09/28/2024 3:00 PM EDT Office Visit [address] [address] Virginia Yu DMD Tooth infection (Primary Dx) from Last 3 Months Social History Tobacco Use Types Packs/Day Years [...] Sign Reading Time Taken Comments Blood Pressure 153/82 09/28/2024 2:53 PM EDT Pulse 58 09/28/2024 2:53 PM EDT Temperature - - Respiratory Rate - - Oxygen Saturation - - Inhaled Oxygen Concentration - - Weight - - Height - - Body Mass Index - - Plan of Treatment Upcoming Encounters Date Type Department Care Team (Late st Contact Info) Description 12/06/2024 10:00 AM EDT Office Visit [facility] [address] [place] [address] Rafia Cortezis, DDS [address] [place] [address] Health Maintenance Due Date Last Done Comments Hepatitis C Screening 1954 Imm-DTaP/Tdap/Td (1 - Tdap) 1973 Breast Cancer Screening (Mammogram) 1994 CT Colonography 10/03/1999 Colonoscopy 10/03/1999 Colorectal Cancer Screening 10/03/1999 FIT/gFOBT 10/03/1999 Fecal DNA 10/03/1999 Flexible Sigmoidoscopy 10/03/1999 Imm-Pneumococcal 65+ (1 of 1 - PCV) 2004 Imm-Zoster, Recombinant (1 of 2) 2004 Bone Density Screening 10/03/2019 Falls Prevention 10/03/2019 [id number] (1 - season) 2024 Alcohol and Drug Screen 05/23/2024 Depression Annual Screen 05/23/2024 Imm-Influenza (Season Ended) 2025 Diabetes Screening 09/17/2025 09/17/2024 Lipid Screening 09/17/2025 09/17/2024 Hypertension Screening (#1) 09/28/2025 Tobacco Screening 09/28/2025 09/28/2024 Procedures Procedure Name Priority Date/Time Associated Diagnosis Comments CASE PRESENTATION SUBS DTL & EXTENSIVE TX PLN Routine 09/28/2024 3:00 PM EDT Tooth infection INTRAORAL - PERIAPICAL FIRST RADIOGRAPHIC IMAGE Routine 09/28/2024 3:00 PM EDT Tooth infection LIMITED ORAL EVALUATION - PROBLEM FOCUSED Routine 09/28/2024 3:00 PM EDT Tooth infection from Last 3 Months Insurance [employer] [place] [facility] [place] [id number] Advance Directives Documents on File Type Date Recorded Patient Clinical Research Nurse Expl 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
[2024-10-30 09:48] LABS: Basophils Percent Auto 0.8 % (0-2); Eosinophils Absolute Auto 0.1 X10*3/uL (0.0-0.4); Eosinophils Percent Auto 1.7 % (0-4); Hematocrit 36.5 % (37.0-47.0); Hemoglobin 12.5 g/dl (12.0-16.0); Imm Gran Abs Auto 0.01 X10*3/uL (0.00-0.03); Imm Gran Pct Auto 0.2 % (0.0-0.4); Lymphocytes Absolute Auto 1.5 X10*3/uL (1.2-4.9); Lymphocytes Percent Auto 27.8 % (20-40); Mean Corpuscular HGB Conc 34.2 g/dl (31.0-35.0); Mean Corpuscular Volume 90.6 fL (80.0-98.0); Mean Platelet Volume 10.7 fL (9.4-12.3); Monocytes Absolute Auto 0.4 X10*3/uL (0.1-1.2); Monocytes Percent Auto 7.4 % (2-11); Neutrophils Absolute Auto 3.3 x10*3/uL (2.0-8.3); Neutrophils Percent Auto 62.1 % (45-73); Platelet Count 151 X10*3/uL (160-400); Red Blood Count 4.03 X10*6/uL (4.20-5.50); Red Cell Distribution Width 11.9 % (11.0-16.0); White Blood Count 5.3 X10*3/uL (4.8-10.8)
[2024-10-30 10:41] LABS: Alanine Aminotransferase 264 U/L (0-31); Albumin Level 4.4 g/dL (3.5-5.0); Alkaline Phosphatase 75 U/L (39-117); Anion Gap 8 (12-20); Aspartate Amino Transferase 166 U/L (5-31); Bilirubin Total 0.5 mg/dL (0.0-1.0); Blood Urea Nitrogen 14 mg/dL (9-16); Calcium 11.2 mg/dL (8.4-10.2); Carbon Dioxide 28 mmol/L (22-29); Chloride 108 mmol/L (96-108); Cholesterol 130 mg/dL (<200); Estimated Glomerular Filt Rate > 60; Glucose Random 85 mg/dL (60-115); HDL Cholesterol 61 mg/dL (>40); LDL Cholesterol Calculated 51 mg/dL (<100); Sodium 140 mmol/L (135-145); Total Protein 6.7 g/dL (6.5-8.0); Triglycerides 93 mg/dL (<150)
[2024-10-30 10:48] LABS: Free T4 (Free Thyroxine) 1.07 ng/dL (0.71-1.85); TSH reflex Free T4 2.36 uIU/mL (0.32-4.0); Vitamin D 25-OH Total 35.4 ng/mL (>30)
[2024-10-30 10:53] LABS: Folate 13.5 ng/mL (> or = 4.0); Vitamin B12 1068 pg/mL (200-900)
== END 2024-10-30 08:42 | disposition home or self-care (01) ==
LOC: HO.LAB 08:41
DX: Z00.00 Encounter for general adult medical examination without abnormal findings (principal); E78.00 Pure hypercholesterolemia, unspecified
CPT/HCPCS: 36415; 80053; 80061; 82306; 82607; 82746; 84439; 84443; 85025

== ENCOUNTER 2024-11-08 10:52 | Outpatient (REF) | payer MEDICARE, SELFPAY ==
--- NOTE | ~2024-11-08 | MM_ITS ---
EXAMINATION: DXA BONE DENSITY AXIAL HISTORY: Z78.0 - Asymptomatic menopausal state TECHNIQUE: [employer] Dual energy absorptiometry (DEXA) of the lumbar spine, total left hip, and femoral neck was performed. COMPARISON: Comparison is made with the prior examination dated 08/27/2021. FINDINGS: The bone mineral density of the lumbar spine is 1.141, corresponding to a T-score of -0.3, and a Z-score of 2.0. This is indicative of normal bone mineral density. This represents a BMD change of -8.5% compared to the prior exam. This is statistically significant. The bone mineral density of the left total hip is 0.682, corresponding to a T-score of -2.6, and a Z-score of -0.7. This is indicative of osteoporosis. This represents a BMD change of -7.1% compared to the prior exam. This is statistically significant. The bone mineral density of the left femoral neck is 0.641, corresponding to a T-score of -2.9, and a Z-score of -0.8. This is indicative of osteoporosis. This represents a BMD change of -6.8% compared to the prior exam. MM/XR DEXA axial skeleton IMPRESSION: Based on bone mineral density, and according to World Health Organization (WHO) criteria, the diagnosis is consistent with osteoporosis. All bone density values are in grams per centimeter squared (g/cm2). Statistically, 68% of repeat scans fall within 1 SD (+/- 0.010 g/cm2 for AP spine L1-L4) and 1 SD (+/- 0.012 g/cm2 for femur total) FRAX is a trademark of the [employer]'s [place] for Metabolic Bone Disease, a World Health Organization (WHO) Collaborating Center. Electronically signed by: Albert Wiggins MD 11/12/2024 07:22 AM EDT
--- OUTSIDE RECORDS SUMMARY | 2024-11-08 12:26 | XMS_ITS | Clinical Summary ---
Author Organization [facility] Address [address] [place] [address] Care Team Providers Care Equipment Operation Instructor Name Role Phone Unavailable Primary Care Provider [...] Description 09/28/2024 3:00 PM EDT Office Visit [address] [address] Virginia Yu DMD Tooth infection [...] Description 12/06/2024 10:00 AM EDT Office Visit [facility] [address] [place] [address] Rafia Cortezis, DDS [address] [place] [address] Health Maintenance Due Date Last Done Comments Hepatitis C Screening 1954 Imm-DTaP/Tdap/Td (1 - Tdap) 1973 Breast Cancer Screening (Mammogram) 1994 CT Colonography 10/03/1999 Colonoscopy 10/03/1999 Colorectal Cancer Screening 10/03/1999 FIT/gFOBT 10/03/1999 Fecal DNA 10/03/1999 Flexible Sigmoidoscopy 10/03/1999 Imm-Pneumococcal 65+ (1 of 1 - PCV) 2004 Imm-Zoster, Recombinant (1 of 2) 2004 Bone Density Screening 10/03/2019 Falls Prevention 10/03/2019 [id number] (1 - season) 2024 Alcohol and Drug [...] Last 3 Months Insurance [employer] [place] DENT[place] [facility] [place] [address] Advance Directives Documents on File Type Date Recorded 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
[2024-11-08 12:59] LABS: Iron 92 mcg/dL (30-160); Parathyroid Hormone Intact 176.3 pg/mL (8.7-77.1); Percent Iron Saturation 33 % (15-50); Total Iron Binding Capacity 276 mcg/dL (228-428); Unsaturated Iron Binding 184 ug/dL
[2024-11-08 13:09] LABS: HBS Num1 0.15 mIU/mL (0-7.99); HBc Num1 0.06 S/CO (0.00-0.79); HBsAGNum1 0.43 S/CO (0.00-0.99); Hepatitis B Core Antibody Nonreactive (Nonreactive); Hepatitis B Surface Antigen Negative (Negative); ~HepC Num1 0.08 S/CO (0.00-0.79); ~Hepatitis B Surface Antibody NONREACTIVE (Nonreactive); ~Hepatitis C Antibody Nonreactive (Nonreactive)
[2024-11-08 13:17] LABS: Ferritin 181 ng/mL (10-250)
== END 2024-11-08 10:53 | disposition home or self-care (01) ==
LOC: HO.MAMMO 10:52
DX: M81.0 Age-related osteoporosis without current pathological fracture (principal); R79.89 Other specified abnormal findings of blood chemistry; E83.52 Hypercalcemia; Z78.0 Asymptomatic menopausal state
CPT/HCPCS: 36415; 77080; 82728; 83540; 83970; 86704; 86706; 86803; 87340

== ENCOUNTER → 2024-11-08 11:00 | Outpatient (BNV) | payer MEDICARE, SELFPAY | PROVIDERS: Visit Provider Radiology Diagnostic Radiology | DX: E28.39 Other primary ovarian failure (principal) | CPT/HCPCS: 77080 ==

== ENCOUNTER 2024-11-30 08:58 | Outpatient (REF) | payer MEDICARE, SELFPAY ==
--- OUTSIDE RECORDS SUMMARY | 2024-11-30 15:06 | XMS_ITS | Clinical Summary ---
Author Organization [facility] Address [address] [place] [address] Phone Care Team Providers Care Dairy Consultant Name Role Phone Reynaldo Khoury MD Primary Care Provider [phone]- [phone] Allergies Active Allergy Reactions Criticality Noted Date Comments Aspirin 08/21/2021 Medications amLODIPine (NORVASC) 2.5 mg tablet Take 1 [...] 1 (one) time each day. 09/06/2018 Active olmesartan (BENICAR) 40 mg tablet Take 1 tablet (40 mg total) by mouth 1 (one) time each day. Active Maximum D3 325 mcg (13,000 unit) capsule Take by mouth 1 (one) time each day. 07/25/2024 Active donepeziL (ARICEPT) 5 mg tablet Take 1 tablet (5 mg total) by mouth at bedtime. 09/14/2024 Active mirtazapine (REMERON) 7.5 mg tablet Take 1 tablet (7.5 mg total) by mouth at bedtime. 09/14/2024 Active pantoprazole (PROTONIX) 40 mg EC tablet Take 1 tablet (40 mg total) by mouth 1 (one) time each day. 09/14/2024 Active ezetimibe (ZETIA) 10 mg tablet Take 1 tablet (10 mg total) by mouth 1 (one) time each day. 90 each 11 10/17/2024 Active Active Problems Problem Noted Date Diagnosed Date Hypercalcemia 08/27/2021 Palpitations 08/27/2021 Overview (09/10/2024): w/ chest pain of mixed characteristics. Holter and 2-D transthoracic ECHO done 03/12/2021. Assessment & Plan (09/17/2024 12:34 PM EDT): The patient has been experiencing episodes of palpitations. We will order a Holter monitor to evaluate for any underlying arrhythmias as a cause of her symptoms. We will also order an echocardiogram to rule out any significant structural heart disease. Orders: Cardiac holter monitor (<= 48 hours); Future Coronary artery disease 08/21/2021 Overview (09/10/2024): Hx [...] bring a packet of medical records from [facility] in [place] that are as recent as March 2021. [...] nitroglycerin, or if they were to faint. Assessment & Plan (09/17/2024 12:34 PM EDT): The patient has a history of CAD status post multiple stents in the past. On today's visit, she refers symptoms of atypical chest discomfort. The patient is on antiplatelet therapy with clopidogrel given her aspirin allergy. She is also on antianginal therapy with amlodipine and metoprolol. She is also on statin therapy with atorvastatin. At this point, we will order a nuclear stress test to rule out any cardiac ischemia as a cause of her symptoms. The patient has a history of coronary artery disease. During today's visit, we reviewed the warning signs that should prompt an urgent medical evaluation. Specifically, we discussed that the patient should go to the hospital if she develops any chest discomfort at rest lasting for more than 5 minutes or worsening chest discomfort with exertion. Orders: Comprehensive metabolic panel; Future Transthoracic echocardiogram (TTE) complete with PRN contrast, bubble, strain, and 3D order panel; Future perflutren lipid microsphere (DEFINITY) 1.3 mL in sodium chloride 0.9% 8.7 mL injection Nuclear stress test with myocardial perfusion; Future Hyperlipidemia 08/21/2021 Overview (09/10/2024): Last Assessment & Plan: Patient with history of hyperlipidemia. She is on simvastatin 40 mg orally daily. I do not see any recent lipid panel. She is given a lab slip to check a fasting lipid panel. Given her history of CAD her goal LDL is less than 70. Assessment & Plan (09/17/2024 12:34 PM EDT): The patient has a history of hyperlipidemia. The patient is currently on atorvastatin 40 mg orally daily. We will order a new lipid panel to evaluate the patient's current lipid control and determine if any adjustment are needed in the lipid lowering therapy. Orders: Thyroid stimulating hormone; Future Lipid panel; Future Hypertension 08/21/2021 Overview (09/10/2024): Last Assessment & Plan: Patient with history of hypertension. Her blood pressure is well controlled today. Assessment & Plan (09/17/2024 12:34 PM EDT): The patient has a history of arterial hypertension. The patient's blood pressure today was noted to be well controlled. We'll continue the current antihypertensive medication regimen. Orders: ECG 12 lead Resolved Problems Problem Noted Date Diagnosed Date Resolved Date TIA (transient ischemic attack) 08/27/2021 09/17/2024 Encounters Date Type Department Care Team Description 10/16/2024 Telephone [facility] [address] [place] [address] Edna Grace MD 10/05/2024 9:00 AM EDT Ancillary Procedure [facility] [address] [place] [address] Coronary artery disease involving [place] coronary artery of [place] heart with angina pectoris (CMS/HCC V24) 09/26/2024 10:30 AM EDT Ancillary Procedure [facility] [address] [place] [address] Palpitations 09/19/2024 Telephone [facility] [address] [facility] [address] [place] [address] Reynaldo Khoury MD Referral (Received routine paper referral - sent to Jaymie CHARLES 09/17/2024 - AO) 09/17/2024 10:20 AM EDT Office Visit [facility] [address] [place] [address] Edna Grace MD Hypertension, unspecified type (Primary Dx); Coronary artery disease involving [place] coronary artery of [place] heart with angina pectoris (CMS/HCC V24); Palpitations; Pure hypercholesterolemia 09/14/2024 Telephone [facility] [address] [place] [address] Reynaldo Khoury MD from Last 3 Months [...] Sign Reading Time Taken Comments Blood Pressure 148/75 10/05/2024 9:35 AM EDT Pulse 57 09/04/2021 10:14 AM EDT Temperature - - Respiratory Rate - - Oxygen Saturation 99% 09/17/2024 10:22 AM EDT Inhaled Oxygen Concentration - - Weight 47.6 kg (105 lb) 10/05/2024 9:07 AM EDT Height 154.9 cm (5' 1 ) 10/05/2024 9:07 AM EDT Body Mass Index 19.84 10/05/2024 9:07 AM EDT Plan of Treatment Upcoming Encounters Date Type Department Care Team (Late st Contact Info) Description 12/11/2024 11:00 AM EDT Ancillary Procedure [facility] [address] [place] [address] Health Maintenance Due Date Last Done Comments Breast Cancer Screening 1955 DTaP,Tdap,and Td Vaccines (1 - Tdap) 1973 Pneumococcal Vaccine: 50+ Years (1 of 1 - PCV) 2004 Zoster Vaccines (1 of 2) 2004 Colorectal Cancer Screening: Colonoscopy 04/24/2022 Depression Screening 04/24/2022 Falls Risk Assessment 04/24/2022 Hepatitis C Screening 04/24/2022 Medicare Annual Wellness Visit 04/24/2022 Osteoporosis Screening (Bone Density Screening) 04/24/2022 Social Influencers of Health Screening 04/24/2022 COVID-19 Vaccine (2 - 2023-2 5 season) 2024 07/27/2021 Influenza Vaccine (#1) 2025 Hypertension/CHF/CAD Annual BMP Blood Test 10/30/2025 10/30/2024, 09/17/2024 Cholesterol Screening (Lipid Panel) 09/17/2029 09/17/2024 RSV Immunization Adult Patients (1 - 1-dose 75+ series) 2029 HIB Vaccines Aged Out No longer eligi [...] to complete this topic RSV Immunization Patients Under 20 months Aged Out No longer eligible b ased on patient's age to complete this topic Varicella Vaccines Aged Out No longer eligible based on patient's age to complete this topic Procedures Procedure Name Priority Date/Time Associated Diagnosis Comments CALCIUM, IONIZED Routine 10/30/2024 9:46 AM EDT Coronary artery disease involving [place] coronary artery of [place] heart with angina pectoris (CMS/HCC V24) Hypertension, unspecified type COMPREHENSIVE METABOLIC PANEL Routine 10/30/2024 9:46 AM EDT Coronary artery disease involving [place] coronary artery of [place] heart with angina pectoris (CMS/HCC V24) Hypertension, unspecified type NM LEXISCAN STRESS TEST W/ MYOCARDIAL PERFUSION Routine 10/05/2024 11:55 AM EDT Coronary artery disease involving [place] coronary artery of [place] heart with angina pectoris (CMS/HCC V24) CARDIAC HOLTER MONITOR (REPORT GENERATED IN HOUSE) Routine 09/26/2024 10:13 AM EDT Palpitations LIPID PANEL Routine 09/17/2024 11:15 AM EDT Pure hypercholesterolemia THYROID STIMULATING HORMONE Routine 09/17/2024 11:15 AM EDT Pure hypercholesterolemia COMPREHENSIVE METABOLIC PANEL Routine 09/17/2024 11:15 AM EDT Coronary artery disease involving [place] coronary artery of [place] heart with angina pectoris (CMS/HCC V24) ECG 12-LEAD Routine 09/17/2024 10:38 AM EDT Hypertension, unspecified type from Last 3 Months Results * (ABNORMAL) Calcium, ionized (10/30/2024 9:46 AM EDT) [facility] Signature Calcium Ionized 6.2(H) 4.6 - 5.4 mg/dL 11/01/2024 11:17 AM EDT [facility] Comment: Test performed at [facility], [address], [place] [address] Mimi Garcia MD, PhD - Hog Worker Blood Venous blood specimen / Unknown Venipuncture / Unknown 10/30/2024 9:46 AM EDT 10/30/2024 10:47 AM EDT Edna Grace MD LAB BLOOD ORDERABLES F inal Result [facility] [address] [place] [address] * (ABNORMAL) Comprehensive metabolic panel (10/30/2024 9:46 AM EDT) Only the most recent of2 resultswithin the time period is included. Sodium 142 133 - 145 mmol/L LAB CHEMISTRY METHOD 10/30/2024 12:26 PM [facility] Potassium 4.9 3.5 - 5.5 mmol/L LAB CHEMISTRY METHOD 10/30/2024 12:26 PM [facility] Chloride 108 96 - 110 mmol/L LAB CHEMISTRY METHOD 10/30/2024 12:26 PM [facility] CO2 31 21 - 32 mmol/L LAB CHEMISTRY METHOD 10/30/2024 12:26 PM [facility] Anion Gap 3 3 - 11 LAB CHEMISTRY METHOD 10/30/2024 12:26 PM [facility] Glucose 86 70 - 100 mg/dL LAB CHEMISTRY METHOD 10/30/2024 12:26 PM [facility] BUN 14 5 - 25 mg/dL LAB CHEMISTRY METHOD 10/30/2024 12:26 PM [facility] Creatinine 0.67 0.50 - 1.10 mg/dL LAB CHEMISTRY METHOD 10/30/2024 12:26 PM [facility] eGFR 94 >=60 mL/min/1. 73m2 LAB CHEMISTRY METHOD 10/30/2024 12:26 PM [facility] Comment:Calculation based on the Chronic Kidney Disease Epidemiology Collaboration (CKD-EPI) equation refit without adjustment for race. BUN/Creatinine Ratio 20.9 LAB CHEMISTRY METHOD 10/30/2024 12:26 PM [facility] Calcium 11.1(H) 8.5 - 10.5 mg/dL LAB CHEMISTRY METHOD 10/30/2024 12:26 PM [facility] AST (SGOT) 152(H) 10 - 42 unit/L LAB CHEMISTRY METHOD 10/30/2024 12:26 PM EDT [facility] Comment:Results verified by repeat testing ALT (SGPT) 268(H) 10 - 60 unit/L LAB CHEMISTRY METHOD 10/30/2024 12:26 PM [facility] Comment:Results verified by repeat testing Alkaline Phosphatase 93 42 - 121 unit/L LAB CHEMISTRY METHOD 10/30/2024 12:26 PM T [facility] Total Protein 7.0 6.0 - 8.0 g/dL LAB CHEMISTRY METHOD 10/30/2024 12:26 PM [facility] Albumin 4.1 3.2 - 5.0 g/dL LAB CHEMISTRY METHOD 10/30/2024 12:26 PM [facility] Total Bilirubin 0.5 0.0 - 1.4 mg/dL LAB CHEMISTRY METHOD 10/30/2024 12:26 PM [facility] Blood Venous blood specimen / Unknown Venipuncture / Unknown 10/30/2024 9:46 AM EDT 10/30/2024 10:47 AM EDT Edna Grace MD LAB BLOOD ORDERABLES F inal Result [facility] [address] [place] [address], * NM LEXISCAN STRESS TEST W/ MYOCARDIAL PERFUSION (10/05/2024 11:55 AM EDT) Exercise/inject ion duration (min) 0 CV PACS STRESS Exercise/inject ion duration (sec) 35 CV PACS STRESS Peak SBP 148 mmHg CV PACS STRESS Peak DBP 75 mmHg CV PACS STRESS Peak HR 84 bpm CV PACS STRESS Baseline HR 61 bpm CV PACS STRESS Baseline SBP 148 mmHg CV PACS STRESS Baseline DBP 75 mmHg CV PACS STRESS Estimated workload 1.0 METS CV PACS STRESS Percent HR 56 % CV PACS STRESS Rate Pressure Product 12,432.0 mmHg*bpm CV PACS STRESS Target HR 128 bpm CV PACS STRESS TID 0.88 CV PACS STRESS Nuc Rest EF 70 % CV PACS STRESS BSA 1.43 m2 CV PACS STRESS Max HR Percent 56 % CV PA CS STRESS O2 sat rest 98 % CV PACS STRESS O2 sat peak 98 % CV PACS STRESS ST Depression (mm) 0 mm CV PACS STRESS Anatomical Region Laterality Modality Nuclear Medicine 10/05/2024 10:4 2 AM EDT 10/05/2024 11:10 AM EDT Impressions 10/16/2024 6:06 PM EDT Likely normal regadenoson stress test with nuclear imaging. Nuclear imaging revealed normal myocardial perfusion without evidence of ischemia or infarction after attenuation correction was applied. See above regarding possible misalignment issue. There is a normal TID ratio. Gated SPECT imaging was performed and revealed normal left ventricular systolic function and regional wall motion with an LVEF of 67%. The right ventricle is normal in size with normal systolic function. Narrative 10/16/2024 6:06 PM EDT Stress ECG was non-diagnostic due to failure to achieve 85 percent of the maximum age-predicted heart rate. Vasodilator (regadenoson) stress test was performed . Hypotensive blood pressure response. Raw imaging reveals no obvious artifacts. The left ventricular cavity is normal (64 ml end diastolic volume). Myocardial perfusion imaging of the left ventricle reveals a decrease in global counts in basal segments on nonattenuation correction stress images. This may be due to misalignment on splash imaging. CT attenuation correction was applied to the study which completely normalized the previously mentioned perfusion abnormality. There were no perfusion defects noted on attenuation correction images. Gated SPECT imaging was performed which demonstrated normal left ventricular systolic function. Regional wall motion is normal. The calculated LVEF is 67%. TID ratio is 0.88. The right ventricle is normal in size. Right ventricular systolic function is normal. Stress Findings A pharmacological stress test was performed using regadenoson, 0.4 mg IV over 10-15 seconds, followed by radiopharmacological injection 10 seconds post infusion. Total stress time was 0 min and 35 sec. The patient reached the end of the protocol. No low level exercise was used during pharmacological stress test. Reversal medication aminophylline and 100 mg given. The patient's hemodynamic response was inadequate for diagnosis. Blood pressure demonstrated a hypotensive response. Heart rate demonstrated a normal response. Onset of symptoms occurred at Stage 0.5 of the protocol. abdominal pain and cramping noted which resolved after reversal. ECG Mrs. Roverto Galloway is a 68 year old female with history of coronary artery disease status post stent to circumflex artery in 2015 and stent to the mid LAD in May 2018 (left heart cath at that time showed a patent circumflex stent), arterial hypertension, hyperlipidemia, Alzheimer's disease (apparently diagnosed while in [place]; on Aricept), osteoarthritis, and hyperparathyroidism, who was referred for a cardiac evaluation with pharmacologic Nuclear stress test. The ECG shows normal sinus rhythm. NSTT There were no arrhythmias during stress. There is no ST segment changes during stress. There were no arrhythmias during recovery. The result of the stress ECG was non-diagnostic for ischemia due to failure to achieve 85 percent of the maximum age-predicted heart rate. Nuclear Study Quality Study technique: MPI, SPECT, multi, rest and stress, 1 day. Overall image quality is good. CT attenuation correction was utilized. No radiopharmaceutical dose was extravasated. The time from injection to rest imaging is 55 mins. The time from injection to stress imaging is 35 mins. Stress Function Comments not gated Rest Function Comments Resting ejection fraction was 70%. us Edna Grace MD CV STRESS PROCEDURES F inal Result * CARDIAC HOLTER MONITOR (REPORT GENERATED IN HOUSE) (09/26/2024 10:13 AM EDT) Anatomical Region Laterality Modality Cardiac Diagnost ic Narrative 10/19/2024 8:17 AM EDT [facility]PARTMENT [id number], [place] [address] TEL: FAX: Type of test: 48 hour Holter Monitor Date of test: 09/26/24 Ordering provider: Edna Todd MD Reason for Test: Palpitations Findings: 1: The predominant rhythm was Sinus Bradycardia. 2: Heart rate range was 37- 85 bpm with an average of 57 bpm. Total time in Sinus Bradycardia was 31 hrs 38 mins. 3: Frequent PACs with a PAC burden of 4%. 4: Frequent PVCs with a PVC burden of 4.8%. 5: No pauses noted. Longest R-R 2.0 sec. No sustained arrhythmias. 6: Diary returned with no entries. Edna Grace MD CV CARDIAC SERVICES MO OCEDURES Final Result * Thyroid stimulating hormone (09/17/2024 11:15 AM EDT) Pathologist [facility] TSH 1.870 0.450 - 4.500 uIU/mL [facility] 1 Blood Venous blood specimen / Unknown 09/17/2024 11:15 AM EDT 09/17/2024 Narrative [facility] 1 - 09/18/2024 1:06 AM EDT Performed at: [facility] [id number] Locomotive Supervisor: Sheila Vale MD, Phone: [phone] Edna Grace MD LAB BLOOD ORDERABLES F inal Result [facility] 1 * (ABNORMAL) Lipid panel (09/17/2024 11:15 AM EDT) [facility] Cholesterol Total 178 100 - 199 mg/dL [facility] Triglycerides 185(H) 0 - 149 mg/dL [facility] 1 HDL Cholesterol 63 >39 mg/dL [facility] 1 VLDL Cholesterol Calculated 31 5 - 40 mg/dL [facility] 1 LDL Chol Calc (NIH) 84 0 - 99 mg/dL [facility] 1 Blood Venous blood specimen / Unknown 09/17/2024 11:15 AM EDT 09/17/2024 Narrative [facility] 1 - 09/18/2024 1:06 AM EDT Performed at: [facility] [id number] Locomotive Supervisor: Sheila Vale MD, Phone: [phone] Edna Grace MD LAB BLOOD ORDERABLES F inal Result [facility] 1 * ECG 12 lead (09/17/2024 10:38 AM EDT) Ventricular Rate ECG 56 BPM GEMUSE Atrial Rate 56 BPM GEMUSE P-R Interval 132 ms GEMUSE QRS Duration 80 ms GEMUSE Q-T Interval 404 ms GEMUSE QTc 389 ms GEMUSE P Wave Sunburst 27 degrees GEMUSE R Sunburst -40 degrees GEMUSE T Sunburst 43 degrees GEMUSE ECG Interpretation Sinus bradycardia Left axis deviation Low voltage QRS Septal infarct , age undetermined Nonspecific T wave abnormality Abnormal ECG When compared with ECG of 01-OCT-2021 20:58, Vent. rate has decreased BY 36 BPM Left bundle branch block is no longer Present Septal infarct is now Present Confirmed by EDNA GRACE ([id number]) on 09/17/2024 12:30:40 PM GEMUSE 09/17/2024 10:3 8 AM EDT 09/17/2024 12:30 PM EDT us Edna Grace MD ECG ORDERABLES Final Result GEMUSE from Last 3 Months Insurance MEDICAID - [place] [facility] MEDICARE ADVANTAGE Care Teams Dairy Consultant Relationship Specialty Start Date End Date Reynaldo Khoury MD [facility] [address] [address] [address] [place] [address] PCP - General 07/19/18
--- OUTSIDE RECORDS SUMMARY | 2024-11-30 15:06 | XMS_ITS | Clinical Summary ---
Author Organization [facility] Address [address] [place] [address] Care Team Providers Care Presser Cotton Ginning Name Role Phone Unavailable Primary Care Provider [...] Description 09/28/2024 3:00 PM EDT Office Visit [address] [address] Virginia Yu DMD from Last 3 Months Social History Tobacco [...] Description 12/06/2024 10:00 AM EDT Office Visit [facility] [address] [place] [address] ArturoIkerDuttaDayne delgado, DDS [address] [place] [address] Health Maintenance Due Date Last Done Comments Hepatitis C Screening 1955 Imm-DTaP/Tdap/Td (1 - Tdap) 1973 Breast Cancer Screening (Mammogram) 1994 CT Colonography 10/03/1999 Colonoscopy 10/03/1999 Colorectal Cancer Screening 10/03/1999 FIT/gFOBT 10/03/1999 Fecal DNA 10/03/1999 Flexible Sigmoidoscopy 10/03/1999 Imm-Pneumococcal 50+ (1 of 1 - PCV) 2004 Imm-Zoster, Recombinant (1 of 2) 2004 Bone Density Screening 10/03/2019 Falls Prevention 10/03/2019 [id number] ( - season) 2024 Alcohol and Drug Screen 05/23/2024 Depression Annual Screen 05/23/2024 Imm-Influenza (#1) 2025 Diabetes Screening 09/17/2025 09/17/2024 Lipid Screening [...] Last 3 Months Insurance [employer] [place]ENT[place] Advance Directives Documents on File Type Date Recorded Patient Contract Associate Expl 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
== END 2024-11-30 08:59 | disposition home or self-care (01) ==
LOC: HO.HOSX 08:58
PROVIDERS: Visit Provider Physician Assistant
DX: Z13.89 Encounter for screening for other disorder (principal)

== ENCOUNTER 2024-12-17 16:00 | Outpatient (AMB) | payer MEDICARE, MEDICAID, SELFPAY ==
--- OUTSIDE RECORDS SUMMARY | 2024-12-12 09:30 | XMS_ITS | Encounter Summary ---
Author Organization [facility] Address [address] [place] [address] Care Team Providers Care Manager Physical Name Role Phone Reynaldo Khoury MD Primary Care Provider [phone]- [phone] Reason for Visit * Imaging (Routine) - Closed Specialty Diagnoses / Procedures Referred By Contac t Referred To Contact Cardiology Diagnoses Coronary artery disease involving [place] coronary artery of [place] heart with angina pectoris (CMS/HCC V24) Procedures Transthoracic echocardiogram (TTE) complete with PRN contrast, bubble, strain, and 3D order panel MS TTE W 2D IMAGE COMPLETE W DOPPLER ECHO & COLOR FLOW DOPPLER ECHO MS JACKY 2D COMPLETE W/CONTRAST OR W & WO CONTRAST WITH DOPPLER Castillo Grace MD [address] [place] [address] Dr [address] [place] [address] Phone: tel: fax: [facility] Referral ID Status Reason Start Date Expiration Date Visits Re quested Visits Authorized [id number] Closed 09/17/2024 09/17/2025 1 1 Encounter Details Date Type Department Care Team (Latest Contact Info) Description 12/12/2024 9:30 AM EDT Ancillary Procedure [facility] [address] [place] [address] Coronary artery disease involving [place] coronary artery of [place] heart with angina pectoris (CMS/HCC V24) Social History Tobacco Use Types Packs/Day Years Used Date Smoking Tobacco: Never Smokeless Tobacco: Never Comments Unknown Sex and Gender Information Value Date Recorded Sex Assigned at Not on file Legal Sex Female 6:15 PM EST Gender Identity Not on file Sexual Orientation Not on file documented as of this encounter Last Filed Vital Signs Vital Sign Reading Time Taken Comments Blood Pressure 122/67 12/12/2024 2:35 PM EDT Pulse - - Temperature - - Respiratory Rate - - Oxygen Saturation - - Inhaled Oxygen Concentration - - Weight 51.7 kg (114 lb) 12/12/2024 2:35 PM EDT Height 154.9 cm (5' 1 ) 12/12/2024 2:35 PM EDT Body Mass Index 21.54 12/12/2024 2:35 PM EDT documented in this encounter Plan of Treatment Pending Results Name Type Priority Associated Diagnoses Date/Time Transthoracic echocardiogram (TTE) complete with PRN contrast, bubble, strain, and 3D order panel Echocardiography Routine Coronary artery disease involving [place] coronary artery of [place] heart with angina pectoris (CMS/HCC V24) 12/12/2024 10:10 AM EDT documented as of this encounter Visit Diagnoses Diagnosis Coronary artery disease involving [place] coronary artery of [place] heart with angina pectoris (CMS/HCC V24) documented in this encounter Care Teams Manager Physical Relationship Specialty Start Date End Date Reynaldo Khoury MD [facility] [address] [place] [id number] PCP - General 07/19/18 documented as of this encounter
--- NOTE | 2024-12-17 16:02 | A.OFFPC_ITS ---
Vital Signs 3 12/17/24 16:03 Height 5 ft 1.01 in Weight 112 lb BMI 21.2 BP 112/50 L Blood Pressure Location Lt brachial Position Sitting Pulse 64 Pulse Source Pulse Oximeter Temp 97.7 F Temp Source Temporal Artery Scan Pulse Oximetry (%) 96 Oxygen Delivery Method Room Air Intake Visit Reasons: f/u DM and hip pain Automated Process Operator Required: Yes Automated Process Operator Language: Kinyarwanda Accompanied by: Mother Allergies aspirin Allergy (Unknown, Verified 12/17/24 16:08) red eyes naproxen (Naprosyn) Allergy (Unknown, Verified 12/17/24 16:08) Unknown dexamethasone Adverse Reaction (Intermediate, Verified 12/17/24 16:08) Unknown Medication List - Last Reconciled 12/17/24 by Anya Tan PA-C amlodipine 2.5 mg PO DAILY atorvastatin 40 mg PO DAILY clopidogrel 75 mg PO DAILY donepezil 5 mg PO DAILY famotidine 20 mg PO DAILY metoprolol succinate ER 50 mg PO DAILY olmesartan 40 mg PO DAILY omega-3 fatty acids 1,000 mg PO DAILY pantoprazole 40 mg PO DAILY Tobacco use date assessed: 12/17/24 Fall risk assessment: No Falls in past year Last assessed Fall Risk: 12/17/24 Dental Screening Dental Screen Date: 12/17/24 Did you have a dental visit in the last 12 months?: Yes Did you have a dental problem in the last 6 months where you did not have access to dental care?: No Was dental information given to patient?: No HPI f/u DM and hip pain 2 HPI0 Details 69-year-old female with past medical his tory of hypertension, GERD, aortic valve insufficiency, hypothyroid, anxiety, depression, osteoporosis last seen 08/2024 coming in for follow up. In review of the notes, patient was seen by Cardiology 08/2024 through [facility] nuclear stress test was ordered as well as transthoracic echocardiogram and Holter monitor with a appointment to follow up. She completed a nuclear stress test 09/2024 which was essentially a normal study. paraprofessional interpreter Rahul [id number] was used for the duration of this visit. Presenting with dementia, elevated liver enzymes, and lipomas. Dementia was diagnosed in [place], the patient experiences disorientation and has been taking donepezil. Elevated liver enzymes detected in recent blood work, with an abdominal ultrasound scheduled for further investigation. Two subcutaneous masses identified as lipomas, with a referral to a general surgeon for evaluation. Elevated calcium and parathyroid hormone levels, managed by endocrinology. [facility] Medical History CVA (cerebral vascular accident) Surgical History History of cholecystectomy History of left knee surgery Family History Other Mental health disorder Substance use disorder Social History Housing: House Alcohol intake: never Patient Tobacco Use Status: Never used Tobacco e-Cigarette/Vaping Use: Never Used Second Hand Smoke Exposure: No service: No Current occupational status: retired and disabled Cognitive needs: No Hearing needs: No Vision needs: Yes (glasses) Questionnaire PHQ-9 Over the last 2 weeks, how often have you been bothered by any of the following problems? 6. Feeling bad about yourself - or that you are a failure or have let yourself or your family down: nearly every day 7. Trouble concentrating on things, such as reading the newspaper or watching television: several days 8. Moving or speaking so slowly that other people could have noticed. Or the opposite - being so fidgety or restless that you have been moving around a lot more than usual: several days 9. Thoughts that you would be better off or of hurting yourself in some way: not at all Source: Developed by Drs. Albert Guerin, Cathy Lopez, Eddie Hopkins and colleagues, with an educational jed from [employer]. Thrive Questionnaire Date Thrive assessed: 12/17/24 I am a: Parent/Caregiver What is your living situation today?: I choose not to answer this question Within the past 12 months, did the food you bought not last and you didn't have the money to get more?: Never true Within the past 12 months, did you worry whether your food would run out before you got money to buy more?: Sometimes True Do you have trouble paying for medicines?: No Do you have trouble getting transportation to medical appointments?: No Do you have trouble paying your heating and electricity bill?: No Do you have trouble taking care of your child, family member or friend?: Yes Do you have trouble with day-to-day activities such as bathing, preparing meals, shopping, managing finances, etc.?: Yes Are you currently unemployed and looking for a job?: Yes Are you interested in more education?: No Please select the resources that you would like help with: None Currently or been in a relationship where the following occur: No concerns reported THRIVE Score: 1 AUDIT C Alcohol Use Questionnaire (AUDIT-C) 1. How often do you have a drink containing alcohol?: Never Total Score: 0 JEANNINE-7 AMB Questionnaire JEANNINE-7 Date JEANNINE - 7 assessed: 12/17/24 Feeling nervous, anxious, or on edge: 1 = Several days Not being able to stop or control worryin = Several days Worrying too much about different things: 1 = Several days Trouble relaxin = Several days Being so restless that it is hard to sit still: 1 = Several days Becoming easily annoyed or irritable: 1 = Several days Feeling afraid as if something awful might happen: 1 = Several days Total JEANNINE-7 score (0-4 normal; 5-9 mild; 10-14 moderate; 15-21 severe): 7 Source: Developed by Drs. Albert Guerin, Cathy Lopez, Eddie Hopkins and colleagues, with an educational jed from [employer]. JEANNINE-7 Assessment Billing JEANNINE-7 Assessment Tool: JEANNINE-7 Assessment 05458 Review of Systems Const Denies body aches, Denies chills, Denies fever(s), Denies headache(s) and Denies poor appetite Eyes Reports no additional complaints ENT Denies dizziness and Denies headache(s) Card Denies chest pain, Denies irregular heart rhythm, Denies lightheadedness and Denies dyspnea Resp Denies dyspnea GI Denies abdominal pain, Denies nausea and Denies vomiting Musc Reports no additional complaints and Denies abnormal gait Skin/Breast Reports system reviewed and no additional complaints, except as documented Neuro Denies abnormal gait, Denies dizziness and Denies headache(s) Psych Reports no additional complaints Physical exam (Primary Care) Vital Signs: Last Vital Signs Temp 97.7 F 12/17/24 16:03 Pulse 64 07/28/25 16:03 BP 112/50 L 12/17/24 16:03 Pulse Ox 96 12/17/24 16:03 Oxygen Delivery Method Room Air 12/17/24 16:03 BMI result Body Mass Index 21.2 Tobacco/Smoking Status: Tobacco use Status Tobacco use date assessed 12/17/24 12/17/24 16:11 Patient Tobacco Use Status Never used Tobacco 12/17/24 16:11 e-Cigarette/Vaping Use Never Used 12/17/24 16:11 Thrive Assessment: Date of Thrive Assessment Date Thrive assessed 12/17/24 12/17/24 16:11 Currently or been in a relationship where the following occur: No concerns reported Const General: cooperative, healthy appearing, comfortable and no acute distress Orientation/consciousness: patient oriented x3 HENMT Head: Yes normocephalic Ears: hearing grossly normal bilaterally General nose exam: Normal external nose present Eyes General: appearance normal, both eyes and all related structures Conjunctivae: conjunctivae normal Neck Neck: Yes full ROM and Yes no lymphadenopathy Resp Effort & Inspection: normal respiratory effort Auscultation: clear to auscultation bilaterally, no crackles, no rales, no rhonchi and no wheezes Cardio Rate: regular rate Rhythm: regular rhythm Skin General skin exam: no rashes or lesions noted Full body images: 2 1. soft, nontender, freely mobile mass with smooth border and without erythema. 2. soft, nontender, freely mobile mass with smooth border and without erythema. Neuro General: patient oriented x3 Gait exam (Neuro): Normal gait present Extrem General: Yes normal to inspection, Yes full ROM and No edema Psych Affect: normal affect Attitude: cooperative Insight: Limited insight present (Psych) Judgement: Limited judgement present (Psych) Results AMB Hemoglobin A1c 2 AMB Hemoglobin A1c 5.6 % Last Edit by Jade Lyons CMA on 12/17/24 16:47 Results Reviewed Results Reviewed: Laboratory Last Values Hgb A1c (Clinic) 5.6 % (4.0-6.0) 12/17/24 16:46 Coding Level of Care Code Est Pt Level 4 (08948) Diagnoses Osteoporosis M81.0 Essential hypertension I10 Gastroesophageal reflux disease without esophagitis K21.9 Esophagitis presence: without esophagitis Mixed hyperlipidemia E78.2 Hyperlipidemia type: mixed hyperlipidemia Hypothyroidism, unspecified type E03.9 Hypothyroidism type: unspecified Anxiety and depression F41.9; F32.A Type 2 diabetes mellitus without complication, without long-term current use of insulin E11.9 Diabetes mellitus complication status: without complication Diabetes mellitus terminal gauger supervisor insulin use: without terminal gauger supervisor use Diabetes mellitus type: type 2 Coronary artery disease involving [place] coronary artery of [place] heart without angina pectoris I25.10 Associated angina: without angina Coronary Disease-Associated Artery/Lesion type: [place] artery [place] vs. transplanted heart: [place] heart Elevated LFTs R79.89 Dementia F03.90 Soft tissue mass M79.89 Elevated parathyroid hormone R79.89 Additional Codes JEANNINE-7 Assessment Billing - JEANNINE-7 Assessment Tool: JEANNINE-7 Assessment 76338 ([id number]) Assessment & Plan Assessment & Plan (1) Osteoporosis: Code(s): M81.0 - Age-related osteoporosis without current pathological fracture Category: Medical Plan: Referral was placed to endocrinology at last visit for management. She has missed a few appointments but has an appointment coming up and she will be attending. (2) Essential hypertension: Code(s): I10 - Essential (primary) hypertension Category: Medical Plan: Continue on current blood pressure medication. Avoid salt intake and encourage healthy diet and regular exercise. (3) Acid reflux: Code(s): K21.9 - Gastro-esophageal reflux disease without esophagitis Category: Medical Qualifiers: Esophagitis presence: without esophagitis Qualified Code(s): K21.9 - Gastro-esophageal reflux disease without esophagitis Plan: Avoid trigger foods such as citrus, tomato products, soda, caffeine, spicy foods and other foods that may be irritating to your stomach. Avoid laying flat 3-4 hours after eating and elevate the head of the bed 30 degrees to prevent acid from moving into the esophagus. Continue on Pantoprazole and Famotidine (4) Hyperlipidemia: Code(s): E78.5 - Hyperlipidemia, unspecified Category: Medical Qualifiers: Hyperlipidemia type: mixed hyperlipidemia Qualified Code(s): E78.2 - Mixed hyperlipidemia Plan: Avoid foods that are high in cholesterol such as red meat, fried foods, eggs and baked goods. Triglyceride goal of less than 150 and LDL goal of less than 70. Continue on Atorvastatin (5) Hypothyroid: Code(s): E03.9 - Hypothyroidism, unspecified Category: Medical Qualifiers: Hypothyroidism type: unspecified Qualified Code(s): E03.9 - Hypothyroidism, unspecified Plan: Last thyroid levels were WNL. (6) Anxiety and depression: Code(s): F41.9 - Anxiety disorder, unspecified; F32.A - Depression, unspecified Category: Medical Plan: Patient was started on the Mirtazapine at her last visit for anxiety and depression and was getting confusion and disorientation in the mornings. PLan to trial low dose Trazodone for sleep and depression. Normal Qt/Qtc on last EKG (7) Diabetes mellitus: Code(s): E11.9 - Type 2 diabetes mellitus without complications Category: Medical Qualifiers: Diabetes mellitus complication status: without complication Diabetes mellitus mcc insulin use: without terminal gauger supervisor use Diabetes mellitus type: t ype 2 Qualified Code(s): E11.9 - Type 2 diabetes mellitus without complications Plan: Decrease the amount of carbohydrates such as pasta, bread, rice, and potatoes and limit the amount of sweets. Although fruits are generally healthy they should be eaten in moderation as they are still high in sugar. Hemoglobin A1c goal of less than 7%. A1c in the clinic 5.6% today not currently on medication. (8) Coronary artery disease: Comment: 09/2024 LVEF 67% Code(s): I25.10 - Atherosclerotic heart disease of [place] coronary artery without angina pectoris Category: Medical Qualifiers: Associated angina: without angina Coronary Disease-Associated Artery/Lesion type: [place] artery [place] vs. transplanted heart: [place] heart Qualified Code(s): I25.10 - Atherosclerotic heart disease of [place] coronary artery without angina pectoris Plan: Patient having history of coronary artery disease and having mesh placed. Plan to have LDL goal less than 70, blood pressure management with goal blood pressure less than 130/90 and good control of blood sugars. Continue to follow with cardiology and currently undergoing workup and recently completed nuclear stress test which was essentially normal. (9) Elevated LFTs: Code(s): R79.89 - Other specified abnormal findings of blood chemistry Category: Medical Plan: Plan for repeat blood work and US for further evaluation. (10) Dementia: Code(s): F03.90 - Unspecified dementia, unspecified severity, without behavioral disturbance, psychotic disturbance, mood disturbance, and anxiety Category: Medical Plan: Patient's daughter has memory concerns and is looking for referral for neurology which was placed today. Patient has wandering behaviors and often wakes up confused and disoriented and speaks about family members who has passed. Was previously diagnosed with dementia and treated with donepezil. Plan to trial trazodone for sleep and nighttime behavior. (11) Soft tissue mass: Code(s): M79.89 - Other specified soft tissue disorders Category: Medical Plan: Patient has a presence of 2 soft tissue masses 1 on the left side of the chest and 1 on the left side of the back. Plan to obtain General surgery referral as she occasionally has tenderness in these areas. (12) Elevated parathyroid hormone: Code(s): R79.89 - Other specified abnormal findings of blood chemistry Category: Medical Plan: Plan to follow up with endocrinology. Plan The patient will have an abdominal ultrasound to determine the cause of elevated liver enzymes, with repeat blood work planned. Endocrinology will manage hypercalcemia and hyperparathyroidism. A general surgeon referral is made for lipoma evaluation. The patient will continue donepezil for dementia, with a neurologist referral for further treatment options. Trazodone is prescribed for sleep and anxiety, with monitoring for side effects. The patient should contact cardiology for a follow-up appointment. This note was constructed using voice recognition software. While every effort has been made to ensure accuracy and special service representative, still areas may have been included sometimes these areas may affect the content or meeting of the given symptoms. Total time spent caring for the patient today was 30 minutes. This includes time spent before the visit reviewing the chart, time spent during the visit, and time spent after the visit and documentation. Patient was informed and verbally consented to the use of an ambient scribe for clinic note documentation during this visit. Orders: Orders 2 Liver Panel 12/17/24 R79.89 - Other specified abnormal findings of blood chemistry AMB Hemoglobin A1c 12/17/24 Z13.9 - Encounter for screening, unspecified Referrals 2 Neurology Referral F03.90 - Unspecified dementia, unspecified severity, without behavioral disturbance, psychotic disturbance, mood disturbance, and anxiety General Surgery Referral M79.89 - Other specified soft tissue disorders Medications: New 2 trazodone 25 mg (1/2 x 50 mg) PO BEDTIME PRN 30 tabs 0RF sleep
[2024-12-17 16:03] VITALS: BP 112/50; PULSE 64; TEMP 36.5; O2SAT 96; BMI 21.2
--- OUTSIDE RECORDS SUMMARY | 2024-12-17 16:08 | XMS_ITS | Clinical Summary ---
Author Organization [facility] Address [address] [place] [address] Care Team Providers Care Business Continuity Planning Director Name Role Phone Unavailable Primary Care [...] Description 09/28/2024 3:00 PM EDT Office Visit [address] [id number] [place] Yu DMD from Last [...] Care Team (Late st Contact Info) Description 02/05/2025 3:40 PM EDT Office Visit [facility] [address] [place] [address] Dayne Cortez, DDS [address] [place] [address] Health Maintenance Due Date Last Done Comments Hepatitis C Screening 1955 Imm-DTaP/Tdap/Td (1 - Tdap) 1973 Breast Cancer Screening (Mammogram) 1994 CT Colonography 10/03/1999 Colonoscopy 10/03/1999 Colorectal Cancer Screening 10/03/1999 FIT/gFOBT 10/03/1999 Fecal DNA 10/03/1999 Flexible Sigmoidoscopy 10/03/1999 Imm-Pneumococcal 50+ (1 of 1 - PCV) 2004 Imm-Zoster, Recombinant (1 of 2) 2004 Bone Density Screening 10/03/2019 Falls Prevention 10/03/2019 [id number] ( - season) 2024 Alcohol and Drug [...] Last 3 Months Insurance [employer] [place]ICAID [place] MED[place] DENT[place] DENTAL Advance Directives Documents on File Type Date Recorded 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
== END 2024-12-17 17:06 | disposition home or self-care (01) ==
LOC: HO.HMCH 16:01
DX: M81.0 Age-related osteoporosis without current pathological fracture (principal); E11.9 Type 2 diabetes mellitus without complications; F03.90 Unspecified dementia, unspecified severity, without behavioral disturbance, psychotic disturbance, mood disturbance, and anxiety; I10 Essential (primary) hypertension; K21.9 Gastro-esophageal reflux disease without esophagitis; E78.2 Mixed hyperlipidemia; E03.9 Hypothyroidism, unspecified; F41.9 Anxiety disorder, unspecified; F32.A Depression, unspecified; I25.10 Atherosclerotic heart disease of native coronary artery without angina pectoris; R79.89 Other specified abnormal findings of blood chemistry; M79.89 Other specified soft tissue disorders

== ENCOUNTER → 2024-12-17 16:00 | Outpatient (BNVA) | payer MEDICARE, MEDICAID, SELFPAY | DX: E11.9 Type 2 diabetes mellitus without complications (principal); M25.551 Pain in right hip; I10 Essential (primary) hypertension; K21.9 Gastro-esophageal reflux disease without esophagitis; I35.1 Nonrheumatic aortic (valve) insufficiency; E03.9 Hypothyroidism, unspecified; F41.9 Anxiety disorder, unspecified; F32.A Depression, unspecified; M81.0 Age-related osteoporosis without current pathological fracture; E78.2 Mixed hyperlipidemia; I25.10 Atherosclerotic heart disease of native coronary artery without angina pectoris; R79.89 Other specified abnormal findings of blood chemistry; F03.90 Unspecified dementia, unspecified severity, without behavioral disturbance, psychotic disturbance, mood disturbance, and anxiety; M79.89 Other specified soft tissue disorders | CPT/HCPCS: 83036; 96127; 99212 ==

== ENCOUNTER 2024-12-19 10:49 | Outpatient (AMB) | payer MEDICARE, MEDICAID, SELFPAY ==
[2024-12-19 10:54] VITALS: BP 120/64; PULSE 58; O2SAT 97; BMI 21.7
--- NOTE | 2024-12-19 10:54 | MHC.OFFVIS ---
Vital Signs 12/19/24 10:54 Height 5 ft 1.01 in Weight 114 lb 13.773 oz BMI 21.7 BP 120/64 Blood Pressure Location Lt brachial Position Sitting Pulse 58 Pulse Source Pulse Oximeter Pulse Oximetry (%) 97 Oxygen Delivery Method Room Air Intake Visit Reasons: Age related osteoporosis Intake Note: New patient internally referred by PCP for Osteoporosis. Maxillofacial Prosthodontist Required: Yes Maxillofacial Prosthodontist Language: Laborer Drying Department Services: Maxillofacial Prosthodontist Present Maxillofacial Prosthodontist Name: Saida staff interpreter services Information Interpreted: non-clinical & clinical Accompanied by: Self / Same As Patient Allergies aspirin Allergy (Unknown, Verified 12/19/24 10:58) red eyes naproxen (Naprosyn) Allergy (Unknown, Verified 12/19/24 10:58) Unknown dexamethasone Adverse Reaction (Intermediate, Verified 12/19/24 10:58) Unknown Medication List - Last Reconciled 12/19/24 by Albert Gautam MD amlodipine 2.5 mg PO DAILY atorvastatin 40 mg PO DAILY clopidogrel 75 mg PO DAILY donepezil 5 mg PO DAILY famotidine 20 mg PO DAILY metoprolol succinate ER 50 mg PO DAILY olmesartan 40 mg PO DAILY omega-3 fatty acids 1,000 mg PO DAILY pantoprazole 40 mg PO DAILY trazodone 25 mg (1/2 x 50 mg) PO BEDTIME PRN HPI Comments Details: 69 YO F with PMHx osteoporosis who is seen in consultation at the request of PCP for Hypercalcemia. First noted to have high calcium 4-5 yrs ago .Saw Dr. Connor who recommended surgery but pt went to [place] Not Currently using Calcium supplement []. Not Takes IU of Vitamin D daily. Not Currently using HCTZ. Kidney stones: N Osteoporosis: Y History of Riggins use: N Biotin use: N Family history of high calcium or kidney stones: N Renal imaging: [] DXA: Labs: [facility] Medical History CVA (cerebral vascular accident) Surgical History History of cholecystectomy History of left knee surgery Family History Other Mental health disorder Substance use disorder Social History Housing: House Alcohol intake: never Patient Tobacco Use Status: Never used Tobacco e-Cigarette/Vaping Use: Never Used Second Hand Smoke Exposure: No service: No Current occupational status: retired and disabled Cognitive needs: No Hearing needs: No Vision needs: Yes (glasses) Physical Exam Vital Signs: Last Vital Signs Pulse 58 12/19/24 10:54 BP 120/64 12/19/24 10:54 Pulse Ox 97 12/19/24 10:54 Oxygen Delivery Method Room Air 12/19/24 10:54 BMI result Body Mass Index 21.7 There are no Cushingoid features. Absence of blue sclera. Absence of kyphosis. Thyroid gland is of nl size and weighs 15 gms. There are no thyroid nodules palpated. Lungs CTA. Heart S1 S2 Reg R/R Abdominal exam benign. Muscle strength 5/5 . Examination of spine reveals absence of tenderness on palpation Const Other: No cushingoid manifestations Assessment & Plan Assessment & Plan (1) Hypercalcemia: Code(s): E83.52 - Hypercalcemia Category: Medical Plan: This is a 69-year-old female with a history of hypercalcemia due to primary hyperparathyroidism. She does have significant osteoporosis and hypercalcemia would benefit from parathyroid exploration. Will discuss with patient referral to Dr. Diaz at [facility] for evaluation for parathyroid exploration. We will check 25 hydroxy vitamin-D and supplement as necessary Orders: Orders Vitamin D 25-OH Total Today E83.52 - Hypercalcemia Referrals General Surgery Referral E83.52 - Hypercalcemia Coding Level of Care Code New Pt Level 4 (18293) Diagnoses Hypercalcemia E83.52
--- OUTSIDE RECORDS SUMMARY | 2024-12-19 11:48 | XMS_ITS | Clinical Summary ---
Author Organization [facility] Address [address] [place] [address] Care Team Providers Care Export Documents Clerk Name Role Phone Unavailable Primary Care Provider [...] Description 09/28/2024 3:00 PM EDT Office Visit [address] [phone] [place] Yu DMD from Last [...] Description 02/05/2025 3:40 PM EDT Office Visit [facility] [address] [place] [address] Dayne Cortez, DDS [address] [place] [address] Health Maintenance Due Date Last Done Comments Hepatitis C Screening 1954 Imm-DTaP/Tdap/Td (1 - Tdap) 1973 Breast Cancer Screening (Mammogram) 1994 CT Colonography 10/03/1999 Colonoscopy 10/03/1999 Colorectal Cancer Screening 10/03/1999 FIT/gFOBT 10/03/1999 Fecal DNA 10/03/1999 Flexible Sigmoidoscopy 10/03/1999 Imm-Pneumococcal 50+ (1 of 1 - PCV) 2004 Imm-Zoster, Recombinant (1 of 2) 2004 Bone Density Screening 10/03/2019 Falls Prevention 10/03/2019 [id number] ( - season) 2024 Alcohol and Drug [...] Last 3 Months Insurance [employer] [place]ID [place] MED[place] DENT[place] DENTAL Advance Directives Documents on File Type Date Recorded 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
--- OUTSIDE RECORDS SUMMARY | 2024-12-19 11:49 | XMS_ITS | Clinical Summary ---
Author Organization [facility] Address [address] [place] [address] Phone Care Team Providers Care Catalyst Operator Gasoline Name Role Phone Reynaldo Khoury MD Primary Care Provider [phone] Allergies Active Allergy Reactions Criticality Noted Date [...] bring a packet of medical records from [facility] in [place] that are as recent as March 2021. [...] Encounters Date Type Department Care Team Description 12/12/2024 9:30 AM EDT Ancillary Procedure [facility] Cardiology [facility] [address] [place] [address] Coronary artery disease involving three affiliated coronary artery of three affiliated heart with angina pectoris (CMS/HCC V24) 10/16/2024 Telephone [facility] Cardiology [facility] [address] [place] [address] Castillo Grace MD 10/05/2024 9:00 AM EDT Ancillary Procedure [facility] Cardiology [facility] [address] [place] [address] Coronary artery disease involving three affiliated coronary artery of three affiliated heart with angina pectoris (CMS/HCC V24) 09/26/2024 10:30 AM EDT Ancillary Procedure [facility] Cardiology [facility] [address] [place] [address] Palpitations 09/19/2024 Telephone [facility] [address] [facility] [address] [place] [address] Reynaldo Khoury MD Referral (Received routine paper referral - sent to [facility] - 09/17/2024 - AO) from Last 3 Months Surgical History Surgery [...] Pressure 122/67 12/12/2024 2:35 PM EDT Pulse 57 09/04/2021 10:14 AM EDT Temperature - - Respiratory Rate - - Oxygen Saturation 99% 09/17/2024 10:22 AM EDT Inhaled Oxygen Concentration - - Weight 51.7 kg (114 lb) 12/12/2024 2:35 PM EDT Height 154.9 cm (5' 1 ) 12/12/2024 2:35 PM EDT Body Mass Index 21.54 12/12/2024 2:35 PM EDT Plan of Treatment Health Maintenance Due Date Last Done Comments Breast Cancer Screening 1955 DTaP,Tdap,and Td Vaccines (1 - Tdap) 1973 Pneumococcal Vaccine: 50+ Years (1 of 1 - PCV) 2004 Zoster Vaccines (1 of 2) 2004 Colorectal Cancer Screening: Colonoscopy 04/24/2022 Falls Risk Assessment 04/24/2022 Hepatitis C Screening 04/24/2022 Medicare Annual Wellness Visit 04/24/2022 Osteoporosis Screening (Bone Density Screening) 04/24/2022 Social Influencers of Health Screening 04/24/2022 COVID-19 Vaccine (2 - 2023-2 5 season) 2024 07/27/2021 Depression Screening 05/23/2024 Influenza Vaccine (#1) 2025 Hypertension/CHF/CAD Annual BMP [...] 9:46 AM EDT Coronary artery disease involving three affiliated coronary artery of three affiliated heart with angina pectoris (CMS/HCC V24) Hypertension, unspecified type COMPREHENSIVE METABOLIC PANEL Routine 10/30/2024 9:46 AM EDT Coronary artery disease involving three affiliated coronary artery of three affiliated heart with angina pectoris (CMS/HCC V24) Hypertension, unspecified type NM LEXISCAN STRESS TEST W/ MYOCARDIAL PERFUSION Routine 10/05/2024 11:55 AM EDT Coronary artery disease involving three affiliated coronary artery of three affiliated heart with angina pectoris (CMS/HCC V24) CARDIAC HOLTER MONITOR (REPORT GENERATED IN HOUSE) Routine 09/26/2024 10:13 AM EDT Palpitations LIPID PANEL Routine 09/17/2024 11:15 AM EDT Pure hypercholesterolemia from Last 3 Months or Most Recently Relevant to Health Maintenance Results * (ABNORMAL) Calcium, ionized (10/30/2024 9:46 AM EDT) Pathologist [facility] Calcium Ionized 6.2(H) 4.6 - 5.4 mg/dL 11/01/2024 11:17 AM EDT [facility] Comment: Test performed at [facility], [address], [place] [address] Mimi Garcia MD, PhD - Chemical Recovery Operator Blood Venous blood specimen / Unknown Venipuncture / Unknown 10/30/2024 9:46 AM EDT 10/30/2024 10:47 AM EDT Castillo Grace MD LAB BLOOD ORDERABLES F inal Result [facility] [address] [place] [address] * (ABNORMAL) Comprehensive metabolic panel (10/30/2024 9:46 AM EDT) [facility] Sodium 142 133 - 145 mmol/L LAB CHEMISTRY METHOD 10/30/2024 12:26 PM EDT [facility] Potassium 4.9 3.5 - 5.5 mmol/L LAB CHEMISTRY METHOD 10/30/2024 12:26 PM T [facility] Chloride 108 96 - 110 mmol/L LAB CHEMISTRY METHOD 10/30/2024 12:26 PM T [facility] CO2 31 21 - 32 mmol/L LAB CHEMISTRY METHOD 10/30/2024 12:26 PM T [facility] Anion Gap 3 3 - 11 LAB CHEMISTRY METHOD 10/30/2024 12:26 PM T [facility] Glucose 86 70 - 100 mg/dL LAB CHEMISTRY METHOD 10/30/2024 12:26 PM [facility] BUN 14 5 - 25 mg/dL LAB CHEMISTRY METHOD 10/30/2024 12:26 PM [facility] Creatinine 0.67 0.50 - 1.10 mg/dL LAB CHEMISTRY METHOD 10/30/2024 12:26 PM [facility] eGFR 94 >=60 mL/min/1. 73m2 LAB CHEMISTRY METHOD 10/30/2024 12:26 PM [facility] Comment:Calculation based on the Chronic Kidney Disease Epidemiology Collaboration (CKD-EPI) equation refit without adjustment for race. BUN/Creatinine Ratio 20.9 LAB CHEMISTRY METHOD 10/30/2024 12:26 PM [facility] Calcium 11.1(H) 8.5 - 10.5 mg/dL LAB CHEMISTRY METHOD 10/30/2024 12:26 PM [facility] AST (SGOT) 152(H) 10 - 42 unit/L LAB CHEMISTRY METHOD 10/30/2024 12:26 PM [facility] Comment:Results verified by repeat testing ALT (SGPT) 268(H) 10 - 60 unit/L LAB CHEMISTRY METHOD 10/30/2024 12:26 PM [facility] Comment:Results verified by repeat testing Alkaline Phosphatase 93 42 - 121 unit/L LAB CHEMISTRY METHOD 10/30/2024 12:26 PM [facility] Total Protein 7.0 6.0 - 8.0 g/dL LAB CHEMISTRY METHOD 10/30/2024 12:26 PM [facility] Albumin 4.1 3.2 - 5.0 g/dL LAB CHEMISTRY METHOD 10/30/2024 12:26 PM [facility] Total Bilirubin 0.5 0.0 - 1.4 mg/dL LAB CHEMISTRY METHOD 10/30/2024 12:26 PM [facility] Blood Venous blood specimen / Unknown Venipuncture / Unknown 10/30/2024 9:46 AM EDT 10/30/2024 10:47 AM EDT us Castillo Grace MD LAB BLOOD ORDERABLES F inal Result [facility] [address] [place] [address], [place] [phone] * NM LEXISCAN STRESS TEST W/ MYOCARDIAL [...] noted which resolved after reversal. ECG Mrs. Hardeep Deleon is a 68 year old female with history of coronary artery disease status post stent to circumflex artery in 2016 and stent to the mid LAD in May 2018 (left heart cath at that time showed a patent circumflex stent), arterial hypertension, hyperlipidemia, Alzheimer's disease (apparently diagnosed while in [place]; on Aricept), osteoarthritis, and hyperparathyroidism, who was [...] Function Comments Resting ejection fraction was 70%. Castillo Grace MD CV STRESS PROCEDURES F inal Result * CARDIAC HOLTER MONITOR (REPORT GENERATED IN HOUSE) (09/26/2024 10:13 AM EDT) Anatomical Region Laterality Modality Cardiac Diagnost ic Narrative 10/19/2024 8:[address] [facility]PART[facility] [address] [facility], [place] [address], [place] [address] TEL: FAX: Type of test: 48 hour Holter Monitor Date of test: 09/26/24 Ordering provider: Castillo Todd MD Reason for Test: Palpitations Findings: [...] arrhythmias. 6: Diary returned with no entries. Castillo Grace MD CV CARDIAC SERVICES [place] OCEDURES Final Result * (ABNORMAL) Lipid panel (09/17/2024 11:15 AM EDT) Cholesterol Total 178 100 - 199 mg/dL [...] - 09/18/2024 1:06 AM EDT Performed at: 01 - [facility] [address] [id number] Hand Lens Polisher: Sheila Vale MD, Phone: [phone] Castillo Grace MD LAB BLOOD ORDERABLES F inal Result [facility] 1 from Last 3 Months or Most Recently Relevant to Health Maintenance Insurance MEDICAID - [place] [facility] MEDICARE ADVANTAGE Care Teams Catalyst Operator Gasoline Relationship Specialty Start Date End Date Reynaldo Khoury MD [facility] [place] [facility] [address] [place] [address] [address] [facility] [id number] PCP - General 07/19/18
== END 2024-12-19 11:48 | disposition home or self-care (01) ==
LOC: HO.ENCR 10:50
PROVIDERS: Visit Provider Internal Medicine Endocrinology, Diabetes & Metabolism
DX: E83.52 Hypercalcemia (principal)
CPT/HCPCS: 99204

== ENCOUNTER 2024-12-19 10:49 | Outpatient (REF) | payer MEDICARE, MEDICAID, SELFPAY ==
[2024-12-19 14:26] LABS: Alanine Aminotransferase 131 U/L (0-31); Albumin Level 4.4 g/dL (3.5-5.0); Alkaline Phosphatase 80 U/L (39-117); Aspartate Amino Transferase 55 U/L (5-31); Total Protein 6.9 g/dL (6.5-8.0)
== END 2024-12-19 10:50 | disposition home or self-care (01) ==
LOC: HO.10HDL 10:49
PROVIDERS: Visit Provider Internal Medicine Endocrinology, Diabetes & Metabolism
DX: E83.52 Hypercalcemia (principal); R79.89 Other specified abnormal findings of blood chemistry; Z79.899 Other long term (current) drug therapy
CPT/HCPCS: 36415; 80076; 82306; 99202

== ENCOUNTER 2024-12-20 09:47 | Outpatient (REF) | payer MEDICARE, MEDICAID, SELFPAY ==
--- NOTE | ~2024-12-20 | US_ITS ---
EXAMINATION: US ABDOMEN HISTORY: R79.89 - Other specified abnormal findings of blood chemistry TECHNIQUE: Real-time grayscale ultrasound imaging of the abdomen was performed and images were reviewed. COMPARISON: Correlation is made with a CT of the abdomen with contrast dated 12/01/2018. FINDINGS: Liver: The right lobe of the liver measures 11.7 cm in size. The left lobe of the liver measures 6.1 cm in size. The liver demonstrates increased echotexture, consistent with steatosis. No focal mass or intrahepatic biliary ductal dilatation is identified. There is normal hepatopedal flow in the portal vein. Gallbladder and biliary tree: The gallbladder is surgically absent. The common bile duct is normal in caliber measuring 6 mm. Kidneys: The right kidney measures 9.9 cm in length. The left kidney measures 9.8 cm in length. The kidneys are unremarkable, without evidence of masses, hydronephrosis, or calculi. Pancreas: The pancreatic head, neck, and body are unremarkable. The pancreatic tail is obscured by bowel gas. Spleen: The spleen is normal in size and contour, measuring 10.0 cm in length. Abdominal aorta and inferior vena cava: The visualized portions of the abdominal aorta and inferior vena cava are normal in caliber. There is no free fluid in the abdomen. US/US abdomen complete IMPRESSION: Hepatic steatosis. Electronically signed by: Albert Wiggins MD 12/20/2024 10:15 AM EDT
--- NOTE | ~2024-12-20 | XR_ITS ---
EXAMINATION: XR HIP, LEFT CLINICAL INFORMATION: M25.559 - Pain in unspecified hip COMPARISON: August 28, 2018 TECHNIQUE: AP and frog-leg lateral views of the left hip. FINDINGS: The latter center edge angle is 49 degrees. There is medial joint space narrowing. There are small marginal osteophytes involving the fovea and lateral acetabular roof. There is mild sclerosis involving the SI joints. There is mild degenerative irregularity involving pubic symphysis joint. Calcific lesions and pelvis are consistent with phlebolith. There is a surgical clip projecting in the lower central pelvic region. There is moderate calcification involving the femoral artery. 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 Degenerative change of the left SI joint and pubic symphysis. Electronically signed by: Akash Hopper MD 12/20/2024 10:41 AM EDT
--- OUTSIDE RECORDS SUMMARY | 2024-12-20 10:16 | XMS_ITS ---
[...] Description 12/12/2024 9:30 AM EDT Ancillary Procedure [facility] Cardiology [facility] [address] [place] [phone] Coronary artery disease involving ute mountain coronary artery of ute mountain heart with angina pectoris ([facility] V24) 10/16/2024 Telephone [facility] Cardiology [facility] [address] [place] [address] Castillo Grace MD 10/05/2024 9:00 AM EDT Ancillary Procedure [facility] Cardiology [facility] [address] [place] [address] Coronary artery disease involving ute mountain coronary artery of ute mountain heart with angina pectoris ([facility] V24) 09/26/2024 10:30 AM EDT Ancillary Procedure [facility] Cardiology [facility] [address] [place] [address] Palpitations 09/19/2024 Telephone [facility] Cardiology [facility] [address] [place] [phone] Reynaldo Khoury MD Referral (Received routine paper referral - sent to [facility] 09/17/2024 - AOP) from Last 3 Months Surgical History Surgery [...] 9:46 AM EDT Coronary artery disease involving ute mountain coronary artery of ute mountain heart with angina pectoris ([facility] V24) Hypertension, unspecified type COMPREHENSIVE METABOLIC PANEL Routine 10/30/2024 9:46 AM EDT Coronary artery disease involving ute mountain coronary artery of ute mountain heart with angina pectoris ([facility]/HCC V24) Hypertension, unspecified type NM LEXISCAN STRESS TEST W/ MYOCARDIAL PERFUSION Routine 10/05/2024 11:55 AM EDT Coronary artery disease involving ute mountain coronary artery of ute mountain heart with angina pectoris ([facility] V24) CARDIAC HOLTER MONITOR (REPORT GENERATED IN HOUSE) Routine 09/26/2024 10:13 AM EDT Palpitations LIPID PANEL Routine 09/17/2024 11:15 AM EDT Pure hypercholesterolemia from Last 3 Months or Most Recently Relevant to Health Maintenance Results * (ABNORMAL) Calcium, ionized (10/30/2024 9:46 AM EDT) Calcium Ionized 6.2(H) 4.6 - 5.4 mg/dL 11/01/2024 11:17 AM EDT [facility] Comment: Test performed at [facility], [address], [place] [address] Mimi Garcia MD, PhD - Parking Lot Attendant And Cashier Blood Venous blood specimen / Unknown Venipuncture / Unknown 10/30/2024 9:46 AM EDT 10/30/2024 10:47 AM EDT Castillo Grace MD LAB BLOOD ORDERABLES F inal Result [facility] [place] [address] * (ABNORMAL) Comprehensive metabolic panel (10/30/2024 9:46 AM EDT) Sodium 142 133 - 145 mmol/L LAB CHEMISTRY METHOD 10/30/2024 12:26 PM [facility] Potassium 4.9 3.5 - 5.5 mmol/L LAB CHEMISTRY METHOD 10/30/2024 12:26 PM [facility] Chloride 108 96 - 110 mmol/L LAB CHEMISTRY METHOD 10/30/2024 12:26 PM [facility] CO2 31 21 - 32 mmol/L LAB CHEMISTRY METHOD 10/30/2024 12:26 PM [facility] Anion Gap 3 3 - 11 LAB CHEMISTRY METHOD 10/30/2024 12:26 PM [facility] Glucose 86 70 - 100 mg/dL LAB CHEMISTRY METHOD 10/30/2024 12:26 PM [facility] BUN 14 5 - 25 mg/dL LAB CHEMISTRY METHOD 10/30/2024 12:26 PM [facility] Creatinine 0.67 0.50 - 1.10 mg/dL LAB CHEMISTRY METHOD 10/30/2024 12:26 PM [facility] eGFR 94 >=60 mL/min/1. 73m2 LAB CHEMISTRY METHOD 10/30/2024 12:26 PM [facility] Comment:Calculation based on the Chronic Kidney Disease Epidemiology Collaboration (CKD-EPI) equation refit without adjustment for race. BUN/Creatinine Ratio 20.9 LAB CHEMISTRY METHOD 10/30/2024 12:26 PM [facility] Calcium 11.1(H) 8.5 - 10.5 mg/dL LAB CHEMISTRY METHOD 10/30/2024 12:26 PM [facility] AST (SGOT) 152(H) 10 - 42 unit/L LAB CHEMISTRY METHOD 10/30/2024 12:26 PM EDT [facility] Comment:Results verified by repeat testing ALT (SGPT) 268(H) 10 - 60 unit/L LAB CHEMISTRY METHOD 10/30/2024 12:26 PM EDT [facility] Comment:Results verified by repeat testing Alkaline Phosphatase 93 42 - 121 unit/L LAB CHEMISTRY METHOD 10/30/2024 12:26 PM EDT [facility] Total Protein 7.0 6.0 - 8.0 g/dL LAB CHEMISTRY METHOD 10/30/2024 12:26 PM EDT [facility] Albumin 4.1 3.2 - 5.0 g/dL LAB CHEMISTRY METHOD [facility]24 [facility] Total Bilirubin 0.5 0.0 - 1.4 mg/dL LAB CHEMISTRY METHOD 10/30/2024 12:26 PM T [facility] Blood Venous blood specimen / Unknown Venipuncture / Unknown 10/30/2024 9:46 AM EDT 10/30/2024 10:47 AM EDT Castillo Grace MD LAB BLOOD ORDERABLES F inal Result [facility] [address] [place] [address], * NM LEXISCAN STRESS TEST W/ MYOCARDIAL [...] hyperlipidemia, Alzheimer's disease (apparently diagnosed while in [place]; on Aricept), osteoarthritis, and hyperparathyroidism, who was [...] Comments Resting ejection fraction was 70%. us Castillo Grace MD CV STRESS PROCEDURES F inal Result * CARDIAC HOLTER MONITOR (REPORT GENERATED IN HOUSE) (09/26/2024 10:13 AM EDT) Anatomical Region Laterality Modality Cardiac Diagnost ic Narrative 10/19/2024 8:17 AM EDT [facility]PARTMENT [address] [facility] [place] [address], [place] [address] TEL: FAX: Type of test: 48 hour [...] entries. Castillo Grace MD CV CARDIAC SERVICES [place] OCEDURES Final Result * (ABNORMAL) Lipid panel (09/17/2024 11:15 AM EDT) [facility] Cholesterol Total 178 100 - 199 mg/dL [...] AM EDT Performed at: 01 - [facility] [address] [id number] Calcine Furnace Loader: Sheila Vale MD, Phone: [phone] Castillo Grace MD LAB BLOOD ORDERABLES F inal Result [facility] 1 from Last 3 Months or Most Recently Relevant to Health Maintenance Insurance [place] - [place] [facility] [facility] [employer] Care Teams Health Care Attorney Relationship Specialty Start Date End Date Reynaldo Khoury MD [facility] [address] [place] [address] [address] [place] [address] PCP - General 07/19/18
--- OUTSIDE RECORDS SUMMARY | 2024-12-20 10:16 | XMS_ITS | Clinical Summary ---
Author Organization [facility] Address [address] [place] [address] Care Team Providers Care Player Manager Name Role Phone Unavailable Primary Care Provider [...] Description 09/28/2024 3:00 PM EDT Office Visit [address] [address] Virginia Yu DMD from Last [...] Description 02/05/2025 3:40 PM EDT Office Visit [facility] [address] [place] [address] Dayne Cortez, DDS [address] [place] [address] Health Maintenance Due Date Last Done Comments Hepatitis C Screening 1955 Imm-DTaP/Tdap/Td (1 - Tdap) 1973 Breast Cancer Screening (Mammogram) 1994 CT Colonography 10/03/1999 Colonoscopy 10/03/1999 Colorectal Cancer Screening 10/03/1999 FIT/gFOBT 10/03/1999 Fecal DNA 10/03/1999 Flexible Sigmoidoscopy 10/03/1999 Imm-Pneumococcal 50+ (1 of 1 - PCV) 2004 Imm-Zoster, Recombinant (1 of 2) 2004 Bone Density Screening 10/03/2019 Falls Prevention 10/03/2019 [id number] ( - season) 2024 Alcohol and Drug [...] Last 3 Months Insurance [facility] [facility] [place]ID [place] MED[place] DENTAL DENTAL Advance Directives Documents on File Type Date Recorded Patient On Call Pharmacy Technician Expl 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
== END 2024-12-20 09:48 | disposition home or self-care (01) ==
LOC: HO.US 09:47
DX: R79.89 Other specified abnormal findings of blood chemistry (principal); M25.552 Pain in left hip
CPT/HCPCS: 73502; 76700

== ENCOUNTER → 2024-12-20 09:49 | Outpatient (BNV) | payer MEDICARE, MEDICAID, SELFPAY | PROVIDERS: Visit Provider Radiology Diagnostic Radiology | DX: K76.0 Fatty (change of) liver, not elsewhere classified (principal); M16.12 Unilateral primary osteoarthritis, left hip | CPT/HCPCS: 76700 ==

== ENCOUNTER 2025-01-29 13:37 | Outpatient (AMB) | payer MEDICARE, MEDICAID, SELFPAY ==
--- NOTE | 2025-01-29 13:39 | A.OFFVIS_ITS ---
Vital Signs 3 01/29/25 13:47 Height 5 ft 1 in Weight 114 lb 2 oz BMI 21.6 BP 117/56 L Blood Pressure Location Lt brachial Position Sitting Pulse 60 Intake Visit Reasons: two soft tissue masses Intake Note: Pt is seen in office for evaluation and treatment of 2 cyst of the back. Pt c/o: 2 lumps, on ein the front on the chest and another in the back, onset one year, increase in size, painful, the one in the chest was removed 2 yrs ago and came back aprox one yr later, denies discharge, redness or swelling Front Desk Assistant Required: Yes Front Desk Assistant Language: Assistant Distribution Manager Services: Front Desk Assistant Present Front Desk Assistant Name: Shahnaz MARIN Information Interpreted: non-clinical & clinical Stave Inspector: Stave Inspector Present Accompanied by: Daughter Allergies aspirin Allergy (Unknown, Verified 01/29/25 13:46) red eyes naproxen (Naprosyn) Allergy (Unknown, Verified 01/29/25 13:46) Unknown dexamethasone Adverse Reaction (Intermediate, Verified 01/29/25 13:46) Unknown Medication List - Last Reconciled 01/29/25 by Patrick Victoria MD amlodipine 2.5 mg PO DAILY atorvastatin 40 mg PO DAILY clopidogrel 75 mg PO DAILY donepezil 5 mg PO DAILY famotidine 20 mg PO DAILY metoprolol succinate ER 50 mg PO DAILY olmesartan 40 mg PO DAILY omega-3 fatty acids 1,000 mg PO DAILY pantoprazole 40 mg PO DAILY trazodone 25 mg (1/2 x 50 mg) PO BEDTIME PRN HPI Comments Details: 69-year-old female patient with a past medical history of hypertension, GERD, aortic valve insufficiency, hypothyroidism, osteoporosis, dementia, diabetes mellitus, hyperlipidemia, anxiety, and depression presenting for evaluation of several sebaceous cyst. Both are located on the chest. One located in the anterior chest was previously incised and drained but now has returned in his increasing in size. The lesion on the back is causing increased discomfort but was never drained. She denies any fever or chills. She is requesting both lesions be removed. [facility] Medical History CVA (cerebral vascular accident) Surgical History History of cholecystectomy History of left knee surgery Family History Other Mental health disorder Substance use disorder Social History Housing: House Alcohol intake: never Patient Tobacco Use Status: Never used Tobacco e-Cigarette/Vaping Use: Never Used Second Hand Smoke Exposure: No service: No Current occupational status: retired and disabled Cognitive needs: No Hearing needs: No Vision needs: Yes (glasses) Review of Systems Const Unobtainable due to mental condition Physical Exam Const General: no acute distress Nutritional Appearance: well nourished Orientation/consciousness: patient oriented x3 Limitations: no limitations Chest Chest/axillae images: 2 1. 2 cm epidermal inclusion cyst with a central incision from a previous incision and drainage. No erythema or fluctuance appreciated. Resp Effort & Inspection: normal respiratory effort, no audible wheezes, no cough and no respiratory distress Auscultation: clear to auscultation bilaterally GI Inspection: Yes normal to inspection Back/Spine/Pelvis Back/spine/pelvis image: 2 1. 3 cm epidermal inclusion cyst, non fluctuant, nonerythematous, tender to palpation. Neuro General: patient oriented x3 Assessment & Plan Assessment & Plan (1) Epidermal inclusion cyst: Code(s): L72.0 - Epidermal cyst Category: Medical Plan 69-year-old female patient with multiple medical problems presenting with symptomatic epidermal inclusion cyst of the anterior and posterior chest which are gradually increasing in size and causing discomfort. I recommended an excision under local anesthesia and after discussion of the procedure, risks, and alternatives, she consents to the procedure. She will be scheduled for an office based procedure at her earliest convenience. Coding Level of Care Code New Pt Level 4 (51778) Diagnoses Epidermal inclusion cyst L72.0
[2025-01-29 13:47] VITALS: BP 117/56; PULSE 60; BMI 21.6
--- OUTSIDE RECORDS SUMMARY | 2025-01-29 16:07 | XMS_ITS | Clinical Summary ---
Author Organization [facility] [employer] [facility] Address [address] [place] [address] Phone Care Team Providers Care Sheltered Workshop Executive Director Name Role Phone Reynaldo Khoury MD Primary Care Provider [phone]- [phone] Allergies Active Allergy Reactions Criticality Noted Date [...] bring a packet of medical records from [facility] in [place] that are as recent as March 2021. [...] Encounters Date Type Department Care Team Description 01/11/2025 Telephone [facility] [address] [place] [address] Castillo Grace MD 01/10/2025 1:00 PM EDT Lab Draw Station - [address] [place] [phone] Pure hypercholesterolemia 01/09/2025 Telephone [facility] [address] [place] [address] Castillo Grace MD 12/12/2024 9:30 AM EDT Ancillary Procedure [facility] Cardiology [facility] [address] [place] [phone] Coronary artery disease involving [place] coronary artery of [place] heart with angina pectoris ([facility] V24) from Last 3 Months Surgical History Surgery [...] 04/24/2022 Social Influencers of Health Screening 04/24/2022 Depression Screening 05/23/2024 COVID-19 Vaccine (2 - 2024-2 6 season) 2025 07/27/2021 Influenza Vaccine (#1) 2025 Hypertension/CHF/CAD Annual BMP Blood Test 01/10/2026 01/10/2025, 10/30/2024, 09/17/2024 RSV Immunization Adult Patients (1 - 1-dose 75+ series) 2029 Cholesterol Screening (Lipid Panel) 01/10/2030 01/10/2025, 09/17/2024 HIB Vaccines Aged Out No longer eligi [...] Procedure Name Priority Date/Time Associated Diagnosis Comments COMPREHENSIVE METABOLIC PANEL Routine 01/10/2025 1:01 PM EDT Pure hypercholesterolemia LIPID PANEL WITH REFLEX TO DIRECT LDL Routine 01/10/2025 1:01 PM EDT Pure hypercholesterolemia TRANSTHORACIC ECHOCARDIOGRAM (TTE) COMPLETE Routine 12/12/2024 10:10 AM EDT Coronary artery disease involving [place] coronary artery of [place] heart with angina pectoris ([facility] V24) CALCIUM, IONIZED Routine 10/30/2024 9:46 AM EDT Coronary artery disease involving [place] coronary artery of [place] heart with angina pectoris ([facility] V24) Hypertension, unspecified type COMPREHENSIVE METABOLIC PANEL Routine 10/30/2024 9:46 AM EDT Coronary artery disease involving [place] coronary artery of [place] heart with angina pectoris ([facility]/HCC V24) Hypertension, unspecified type from Last 3 Months Results * Lipid panel with reflex to direct LDL (01/10/2025 1:01 PM EDT) [facility] Signature Cholesterol 123 0 - 200 mg/dL LAB CHEMISTRY METHOD 01/10/2025 3:53 PM EDT [facility] Triglycerides 100 0 - 150 mg/dL LAB CHEMISTRY METHOD 01/10/2025 3:53 PM EDT [facility] HDL 69 >=40 mg/dL LAB CHEMISTRY METHOD 01/10/2025 3:53 PM EDT [facility] LDL Calculated 34 0 - 100 mg/dL LAB CHEMISTRY METHOD 01/10/2025 3:53 PM EDT [facility] Comment:Estimated LDL Calcul ated using equation: Total cholesterol - HDL cholesterol - (Triglycerides/5) VLDL Cholesterol Stan 20 mg/dL LAB CHEMISTRY METHOD 01/10/2025 3:53 PM EDT [facility] Non HDL Chol. (LDL+VLDL) 54 <145 mg/dL LAB CHEMISTRY METHOD 01/10/2025 3:53 PM EDT [facility] Chol/HDL Ratio 1.8 0.0 - 4.4 LAB CHEMISTRY METHOD 01/10/2025 3:53 PM EDT [facility] Blood Venous blood specimen / Unknown Venipuncture / Unknown 01/10/2025 1:01 PM EDT 01/10/2025 2:40 PM EDT us Castillo Grace MD LAB BLOOD ORDERABLES F inal Result [facility] [address] [place] [address], * (ABNORMAL) Comprehensive metabolic panel (01/10/2025 1:01 PM EDT) Only the most recent of2 resultswithin the time period is included. Sodium 140 133 - 145 mmol/L LAB CHEMISTRY METHOD 01/10/2025 3:54 PM EDT [facility] Potassium 4.1 3.5 - 5.5 mmol/L LAB CHEMISTRY METHOD 01/10/2025 3:54 PM EDT [facility] Chloride 106 96 - 110 mmol/L LAB CHEMISTRY METHOD 01/10/2025 3:54 PM [facility] CO2 30 21 - 32 mmol/L LAB CHEMISTRY METHOD 01/10/2025 3:54 PM [facility] Anion Gap 4 3 - 11 LAB CHEMISTRY METHOD 01/10/2025 3:54 PM [facility] Glucose 129(H) 70 - 100 mg/dL LAB CHEMISTRY METHOD 01/10/2025 3:54 PM [facility] BUN 13 5 - 25 mg/dL LAB CHEMISTRY METHOD 01/10/2025 3:54 PM [facility] Creatinine 0.59 0.50 - 1.10 mg/dL LAB CHEMISTRY METHOD 01/10/2025 3:54 PM [facility] eGFR 97 >=60 mL/min/1. 73m2 LAB CHEMISTRY METHOD 01/10/2025 3:54 PM [facility] Comment:Calculation based on the Chronic Kidney Disease Epidemiology Collaboration (CKD-EPI) equation refit without adjustment for race. BUN/Creatinine Ratio 22.0 LAB CHEMISTRY METHOD 01/10/2025 3:54 PM [facility] Calcium 11.2(H) 8.5 - 10.5 mg/dL LAB CHEMISTRY METHOD 01/10/2025 3:54 PM [facility] AST (SGOT) 24 10 - 42 unit/L LAB CHEMISTRY METHOD 01/10/2025 3:54 PM [facility] ALT (SGPT) 35 10 - 60 unit/L LAB CHEMISTRY METHOD 01/10/2025 3:54 PM [facility] Alkaline Phosphatase 77 42 - 121 unit/L LAB CHEMISTRY METHOD 01/10/2025 3:54 PM [facility] Total Protein 6.9 6.0 - 8.0 g/dL LAB CHEMISTRY METHOD 01/10/2025 3:54 PM [facility] Albumin 4.3 3.2 - 5.0 g/dL LAB CHEMISTRY METHOD 01/10/2025 3:54 PM EDT [facility] Total Bilirubin 0.7 0.0 - 1.4 mg/dL LAB CHEMISTRY METHOD 01/10/2025 3:54 PM EDT [facility] Blood Venous blood specimen / Unknown Venipuncture / Unknown 01/10/2025 1:01 PM EDT 01/10/2025 2:40 PM EDT us Castillo Grace MD LAB BLOOD ORDERABLES F inal Result [facility] [address] [place] [address], [place] [phone] * (ABNORMAL) TRANSTHORACIC ECHOCARDIOGRAM (TTE) COMPLETE (12/12/2024 10:10 AM EDT) Left Atrium Minor [place] 5.2 cm CV PACS Left Atrium Major [place] 4.9 cm CV PACS LA Area Sys (A2C) 18 cm2 CV PACS LA Area Sys (A4C) 18 cm2 CV PACS LA Volume (BP) 54 mL CV PACS LA Size 4.3 cm CV PACS RA Area 15.6 cm2 CV PACS RA 2D Volume 37 mL CV PACS AV Mean Gradient 4 mmHg CV PACS Ao VTI 32.3 cm CV PACS AV Peak [place] 1.4 m/s CV PACS AV Peak Gradient 8 mmHg CV PACS AV Area Continuity Equation 2.2 cm2 CV PACS AV Area Peak Velocity 2.2 cm2 CV PACS Ascending Aorta 3.6 cm CV PACS IVC Proximal 1.4 cm CV PACS IVSD 1.2(A) 0.6 - 0.9 cm CV PACS LVIDD 4.4 3.8 - 5.2 cm CV PACS LVIDS 2.9 2.2 - 3.5 cm CV PACS LVOT Diameter 1.8 cm CV PACS LVOT Mean [place] 0.7 m/s CV PACS LVOT Mean Grad 3 mmHg CV PACS LVOT Mean Grad 3 mmHg CV PACS LVOT Peak VTI 27.6 cm CV PACS LVOT Peak [place] 1.3 m/s CV PACS LVOT Peak Gradient 6 mmHg CV PACS LVPWD 1.2(A) 0.6 - 0.9 cm CV PACS MV E' Tissue Velocity Lateral 8 cm/s CV PACS MV E' Tissue Velocity Septal 7 cm/s CV PACS LVOT Area 2.5 cm2 CV PACS LVOT Stroke Volume 70 mL CV PACS MV Deceleration [place] 4.2 m/s2 CV PACS E Wave Deceleration Time 192 119 - 242 ms CV PACS MV PHT 57 ms CV PACS MV Peak A [place] 0.63 m/s CV PACS MV Peak E [place] 0.81 m/s CV PACS MV Mean Gradient 1 mmHg CV PACS MV Mean Gradient 1 mmHg CV PACS MV Mean Gradient 1 mmHg CV PACS MV Mean Gradient 1 mmHg CV PACS MV VTI 27.5 cm CV PACS Mitral Valve Max Velocity 1.0 m/s CV PACS MV Peak Gradient 4 mmHg CV PACS MV Area PHT 3.9 cm2 CV PACS MV Area Continuity Equation 2.6 cm2 CV PACS PV Acceleration Time 106 ms CV PACS PV Acceleration Time 162 ms CV PACS PV Acceleration Time 134 ms CV PACS PV Mean Gradient 1 mmHg CV PACS PV VTI 18.1 cm CV PACS PV Peak Velocity 0.8 m/s CV PACS PV Peak Gradient 3 mmHg CV PACS RV Diastolic Basal Dimension 3.7 2.5 - 4.1 cm CV PACS RV S' 13 cm/s CV PACS TAPSE 29 mm CV PACS TR Peak Velocity 2.48 m/s CV PACS TR Peak Gradient 25 mmHg CV PACS E/E' Ratio Septal 12 CV PACS E/E' Ratio Averaged 11 CV PACS Relative Wall Thickness ratio 0.55 CV PACS LVOT:AV VTI Index 0.85 CV PACS FS 34 % CV PACS LV Mass 2D 191 g CV PACS MV VTI:LVOT VTI ratio 1.0 CV PACS LVOT flow 178 mL/s CV PACS AV Velocity Ratio 0.93 CV PACS E/A Ratio 1.3 CV PACS E/E' Ratio Lateral 10 CV PACS BSA 1.49 m2 CV PACS LA Volume Index (BP) 36 mL/m2 CV PACS LVIDD Index 2.95 cm/m2 CV PACS LVIDS Index 1.95 cm/m2 CV PACS LV Mass Index 2D 128(A) 44 - 88 g/m2 CV PACS LVOT Stroke Index 47 mL/m2 CV PACS LA Dimension Index 2D 2.9 cm/m2 CV PACS RA 2D Volume Index 25 15 - 27 mL/m2 CV PACS GAVIN Index (VTI) 1.46 cm2/m2 CV PACS GAVIN Index (Pk [place]) 1.48 cm2/m2 CV PACS Ascending Aorta Index 2.42 cm/m2 CV PACS Right Ventricular Peak Systolic Pressure 28 mmHg CV PACS Est. RA Pressure 3 mmHg CV PACS LA/Ao Ratio 1.5 CV PACS Aortic Root 2.9 cm CV PACS Aortic Root Index 1.95 cm/m2 CV PACS Anatomical Region Laterality Modality Ultrasound Addenda Addendum by Castillo Grace MD on 01/07/2025 5:14 PM EDT Left ventricle cavity size is normal. Left ventricular systolic function is in the normal range with an ejection fraction of 60-65%. No regional LV wall motion abnormalities noted. Left ventricle mild concentric hypertrophy. Right ventricle cavity is normal. Right ventricular systolic function is normal. TAPSE 29 mm. RV S' 13 cm/sec. Mitral Valve: There is mild regurgitation. Pulmonic Valve: There is mild pulmonic valve regurgitation. Tricuspid Valve: There is mild regurgitation. The right ventricular systolic pressure is normal. The RVSP is estimated at 28 mmHg. Left Ventricle Left ventricle cavity size is normal. There is mild concentric hypertrophy. Systolic function is normal with an ejection fraction of 60-65%. There are no regional LV wall motion abnormalities. There is no diastolic dysfunction. Right Ventricle Right ventricle cavity appears normal. Systolic function is normal. RV S' 13 cm/sec. Normal TAPSE (> 17 mm), measuring 29 mm. Left Atrium Left atrium cavity is mildly dilated. Right Atrium Right atrium cavity is normal. IVC/SVC Inferior vena cava structure is normal. RA pressures is estimated to be 3 mmHg (IVC diameter <21 mm and decreases >50% during inspiration). Mitral Valve The leaflets are mildly thickened. There is mild annular calcification. There is mild regurgitation. There is no evidence of mitral valve stenosis. Tricuspid Valve Tricuspid valve structure is normal. There is mild regurgitation. There is no evidence of tricuspid valve stenosis. The right ventricular systolic pressure is normal. The RVSP is estimated at 28 mmHg. Aortic Valve The aortic valve is trileaflet. The leaflets are mildly thickened. There is no regurgitation or stenosis. Pulmonic Valve There is mild pulmonic valve regurgitation. There is no evidence of pulmonic valve stenosis. Ascending Aorta The aorta appears normal in size. Pericardium Pericardium appears normal. There is no pericardial effusion. Study Details Overall the study quality was adequate. Castillo Grace MD CV ECHO PROCEDURES Matthew tre Result - Final * (ABNORMAL) Calcium, ionized (10/30/2024 9:46 AM EDT) [facility] Calcium Ionized 6.2(H) 4.6 - 5.4 mg/dL 11/01/2024 11:17 AM EDT [facility] Comment: Test performed at [facility], [address] [place] [address] Mimi Garcia MD, PhD - Supervisor [employer] Blood Venous blood specimen / Unknown Venipuncture / Unknown 10/30/2024 9:46 AM EDT 10/30/2024 10:47 AM EDT Castillo Grace MD LAB BLOOD ORDERABLES F inal Result [facility] [address] [place] [address] from Last 3 Months Insurance MEDICAID - [place] [facility] MEDICARE ADVANTAGE Care Teams Sheltered Workshop Executive Director Relationship Specialty Start Date End Date Reynaldo Khoury MD [address] [facility] [address] PCP - General 07/19/18
== END 2025-01-29 13:58 | disposition home or self-care (01) ==
LOC: HO.HGS 13:38
PROVIDERS: Visit Provider Surgery
DX: L72.0 Epidermal cyst (principal)
CPT/HCPCS: 99204

== ENCOUNTER → 2025-01-29 13:37 | Outpatient (BNVA) | payer MEDICARE, MEDICAID, SELFPAY | PROVIDERS: Visit Provider Surgery | DX: L72.0 Epidermal cyst (principal) | CPT/HCPCS: 99202 ==

== ENCOUNTER 2025-03-11 15:35 | Outpatient (AMB) | payer MEDICARE, MEDICAID, SELFPAY ==
--- OUTSIDE RECORDS SUMMARY | 2025-03-11 19:50 | XMS_ITS | Encounter Summary ---
Author Organization [facility] Address [address] [place] [address] Care Team Providers Care Tourist Adviser Name Role Phone Unavailable Primary Care Provider Unavailabl e Encounter Details Date Type Department Care Team (Late st Contact Info) Description 10/28/2021 Dental Interim Note [facility] [address] [place] [phone] Ashley Ashford DMD [address] [place] [address] Social History Tobacco Use Types Packs/Day Years [...]
--- OUTSIDE RECORDS SUMMARY | 2025-03-11 19:50 | XMS_ITS | Clinical Summary ---
Author Organization [facility] Address [address] [place] [address] Care Team Providers Care Aboriginal Education Teacher Name Role Phone Unavailable Primary Care Provider [...] Encounters Date Type Department Care Team Description 02/05/2025 3:40 PM EDT Office Visit [facility] [address] [place] [address] Dayne Cortez DDS from Last 3 Months Social History Tobacco [...] Bone Density Screening 10/03/2019 Falls Prevention 10/03/2019 Alcohol and Drug Screen 05/23/2024 Depression Annual Screen 05/23/2024 [id number] ( - season) 2025 Imm-Influenza (#1) 2025 Hypertension Screening (#1) 09/28/2025 Tobacco Screening 09/28/2025 09/28/2024 Diabetes Screening 01/10/2026 01/10/2025, 09/17/2024 Lipid Screening 01/10/2026 01/10/2025, 09/17/2024 Procedures Procedure Name Priority Date/Time Associated Diagnosis Comments CASE PRESENTATION SUBS DTL & EXTENSIVE TX PLN Routine 02/05/2025 3:40 PM EDT Tooth infection 5 EXTRACTION ERUPTED TOOTH OR EXPOSED ROOT Routine 02/05/2025 3:40 PM EDT Tooth infection from Last 3 Months Insurance [employer] [facility] [place] [facility] [place] [id number] Advance Directives Documents on File Type Date Recorded Patient Tier Lift Operator Expl anation Advance Directives and Livin g Will 09/18/2021 1:04 PM
--- NOTE | 2025-03-12 15:09 | MHC.OFFVIS ---
Vital Signs 03/12/25 16:30 Height 5 ft 1 in Weight 112 lb 6.972 oz BMI 21.2 Intake Visit Reasons: excise two soft tissue masses Intake Note: Patient is seen for office procedure: excision of anterior and posterior chest. Pt c/o: here for lesion removal Extruder Operator Required: Yes Extruder Operator Language: Bank Guard Services: Extruder Operator Present Extruder Operator Name: Shahnaz LISAViviane Information Interpreted: non-clinical & clinical Beef Specialist: Beef Specialist Present Accompanied by: Self / Same As Patient Allergies aspirin Allergy (Unknown, Verified 03/12/25 16:30) red eyes naproxen (Naprosyn) Allergy (Unknown, Verified 03/12/25 16:30) Unknown dexamethasone Adverse Reaction (Intermediate, Verified 03/12/25 16:30) Unknown Medication List - Last Reconciled 03/18/25 by Patrick Victoria MD amlodipine 2.5 mg PO DAILY atorvastatin 40 mg PO DAILY clopidogrel 75 mg PO DAILY donepezil 5 mg PO DAILY famotidine 20 mg PO DAILY metoprolol succinate ER 50 mg PO DAILY olmesartan 40 mg PO DAILY omega-3 fatty acids 1,000 mg PO DAILY pantoprazole 40 mg PO DAILY trazodone 25 mg (1/2 x 50 mg) PO BEDTIME PRN HPI Comments Details: Patient returns today for excision of skin cyst left chest [facility] Medical History CVA (cerebral vascular accident) Surgical History History of cholecystectomy History of left knee surgery Family History Other Mental health disorder Substance use disorder Social History Housing: House Alcohol intake: never Patient Tobacco Use Status: Never used Tobacco e-Cigarette/Vaping Use: Never Used Second Hand Smoke Exposure: No service: No Current occupational status: retired and disabled Cognitive needs: No Hearing needs: No Vision needs: Yes (glasses) Physical Exam Vital Signs: BMI result Body Mass Index 21.2 Office Procedures Excision Details: Preoperative diagnosis: Epidermal inclusion cyst of left anterior chest and left upper back Postoperative diagnosis: Same Procedure: Excision of epidermal inclusion cyst left anterior chest and left upper back Surgeon: Patrick Victoria MD Radius Corner Machine Operator: None Anesthesia: Lidocaine 1% with epinephrine Indications for procedure: 69-year-old female patient presenting for excision of epidermal inclusion cyst involving the left anterior chest wall and left upper back Operative findings: 2 cm epidermal inclusion cyst in the upper left chest just lateral to the sternal margin. A 2nd epidermal inclusion cyst measuring approximately 3 cm is located in the upper left back to the left of midline Specimen: Epidermal inclusion cyst left anterior chest and left upper back Estimated blood loss: 2 mL Complications: None Procedure details: The patient was brought to the procedure room and placed in a supine position. After confirming the site of surgery in the anterior left chest and left upper back and assuring informed consent, the skin was prepped with Betadine and draped in a sterile fashion. Beginning in the left upper chest local anesthesia was infiltrated circumferentially around the epidermal inclusion cyst. An elliptical incision was then created with a scalpel and carried out through subcutaneous tissue around the cyst wall. Sharp dissection was used to excise the cyst from the surrounding subcutaneous tissue. The lesion was passed off the table and sent to pathology for further examination. Dermis was then reapproximated using interrupted 3-0 Polysorb sutures and skin closed using interrupted 3-0 nylon sutures. Sterile dressings consisting of 2 x 2 gauze and Tegaderm were then applied. The patient was then placed in a prone position. The skin was then prepped with Betadine and draped in a sterile fashion. Local anesthesia was then infiltrated around the lesion. An elliptical incision oriented transversely was then created with a scalpel and carried out through subcutaneous tissue and around the cyst wall. The lesion was completely excised and sent to pathology for further examination. Dermis was then reapproximated using interrupted 3-0 Polysorb sutures. Skin was closed using interrupted 3-0 nylon sutures. Sterile dressings consisting of 2 x 2 gauze and Tegaderm were then applied. The patient tolerated the procedure well. She was discharged to home in stable condition. 82449-arnnd/arms/legs 1.1-2cm 97170-xsifu/arms/legs 2.1-3cm Procedure code (CPT) selection complete Assessment & Plan Assessment & Plan (1) Epidermal inclusion cyst: Code(s): L72.0 - Epidermal cyst Category: Medical Plan Patient underwent excision of 2 epidermal inclusion cyst today and will return in approximately 1 week for suture removal. She is welcome to call sooner for any new concerns. Orders: Orders Surgical 03/11/25 L72.0 - Epidermal cyst Coding Level of Care Code Procedure Only Diagnoses Epidermal inclusion cyst L72.0 CPT Codes Trunk/Arms/Legs - CPT: 20959-rcmyb/arms/legs 1.1-2cm ([id number]) Trunk/Arms/Legs - CPT: 32762-ufjke/arms/legs 2.1-3cm ([id number])
[2025-03-12 16:30] VITALS: BMI 21.2
== END 2025-03-11 16:26 | disposition home or self-care (01) ==
LOC: HO.HGS 15:36
PROVIDERS: Visit Provider Surgery
DX: L72.0 Epidermal cyst (principal)
CPT/HCPCS: 11402; 11403

== ENCOUNTER 2025-03-11 15:35 | Outpatient (REF) | payer MEDICARE, MEDICAID, SELFPAY | END 2025-03-11 15:36 | disposition home or self-care (01) | LOC: HO.LNP 15:35 | PROVIDERS: Visit Provider Surgery | DX: L72.0 Epidermal cyst (principal) | CPT/HCPCS: 11402; 11403; 88304 ==

== ENCOUNTER 2025-03-18 13:07 | Outpatient (AMB) | payer MEDICARE, MEDICAID, SELFPAY ==
--- NOTE | 2025-03-18 13:20 | A.OFFVIS_ITS ---
Vital Signs 3 03/18/25 13:28 Height 5 ft 1 in Weight 117 lb BMI 22.1 BP 109/53 L Blood Pressure Location Rt radial Position Sitting Pulse 67 Intake Visit Reasons: s/p excise tissue mass Intake Note: Patient here s/p cyst excision X2. A) Lt ant chest and B) Lt back. Patient c/o: itch and redness along incisions. WLE (JACOB): 03-11-2025 Belting And Webbing Inspector Required: Yes Information Interpreted: clinical only (Shahnaz MARIN) Accompanied by: Daughter Allergies aspirin Allergy (Unknown, Verified 03/18/25 13:28) red eyes naproxen (Naprosyn) Allergy (Unknown, Verified 03/18/25 13:28) Unknown dexamethasone Adverse Reaction (Intermediate, Verified 03/18/25 13:28) Unknown HPI HPI s/p excise tissue mass: Details: Patient endorses some pain on the back excision site. States it feels itchy and pulling. Reports subjective fevers at home for the 1st 2 days after the procedure. Additionally reports some mild bleeding for the 1st 2 days but this has resolved. [facility] Medical History CVA (cerebral vascular accident) Surgical History History of cholecystectomy History of left knee surgery Family History Other Mental health disorder Substance use disorder Social History Housing: House Alcohol intake: never Patient Tobacco Use Status: Never used Tobacco e-Cigarette/Vaping Use: Never Used Second Hand Smoke Exposure: No service: No Current occupational status: retired and disabled Cognitive needs: No Hearing needs: No Vision needs: Yes (glasses) Physical Exam Vital Signs: Last Vital Signs Pulse 67 03/18/25 13:28 BP 109/53 L 03/18/25 13:28 BMI result Body Mass Index 22.1 Chest Chest/axillae images: 2 1. Excision site. Three sutures in place, no surrounding erythema, discharge, bleeding, minimally tender to palpation. Back/Spine/Pelvis Back/spine/pelvis image: 2 1. Excision site. Sutures in place some mild fluid collection deep to the excision site. Tender to palpation. No surrounding cellulitis no drainage or discharge. No malodor or warmth Assessment & Plan Assessment & Plan (1) Epidermal inclusion cyst: Code(s): L72.0 - Epidermal cyst Category: Medical Plan 69-year-old female returning to the office following excision of to epidermal cysts on the back and chest one-week ago with Dr. Victoria. The patient states that she initially had some bleeding on the 1st 2 days along with some subjective fevers at home however this would likely be too early for surgical site infection. She states that they have been causing her some pain, feels a pulling and itching sensation at the excision sites. We reviewed pathology report showing benign epidermal inclusion cyst. On exam the chest excision site appears to be healing well, 3 sutures were removed in office. Steri-Strips were placed to reinforce the wound borders, there was no concern for infection. The back excision site sutures were removed as well, again Steri-Strips were used to reinforce the wound borders.. There was small fluid collection just deep to the incision site which may represent a seroma or hematoma, given that the patient is on clopidogrel it is possible that this is a hematoma. I recommended that she do warm compresses 2 to 3 times a day on this area. There was no evidence of cellulitis or necrosis of the skin. There was no purulent drainage or malodor or warmth noted on exam. I do not think this is acutely infected at this point, we will have her follow up next week for re-evaluation. We discussed return precautions, if she develops fevers, redness around the excision site, drainage or malodor she should return sooner. Coding Level of Care Code Est Pt Level 4 (68092) Diagnoses Epidermal inclusion cyst L72.0
[2025-03-18 13:28] VITALS: BP 109/53; PULSE 67; BMI 22.1
--- OUTSIDE RECORDS SUMMARY | 2025-03-18 16:41 | XMS_ITS | Encounter Summary ---
Author Organization [facility] Address [address] [place] [address] Care Team Providers Care Garnett Machine Operator Name Role Phone Unavailable Primary Care Provider Unavailabl e Encounter Details Date Type Department Care Team (Late st Contact Info) Description 10/28/2021 Dental Interim [address] [facility] [address] [place] [phone] Ashley Ashford DMD [address] [place] [address] Social History Tobacco Use Types Packs/Day Years [...]
--- OUTSIDE RECORDS SUMMARY | 2025-03-18 16:41 | XMS_ITS | Clinical Summary ---
Author Organization [facility] Address [address] [facility] [address] [place] [address] Phone Care Team Providers Care Business Control Specialist Name Role Phone Reynaldo Khoury MD Primary Care Provider +1- [phone] Allergies Active Allergy Reactions Criticality Noted Date [...] bring a packet of medical records from [facility] in [place] that are as recent as March 2021. [...] Type Department Care Team Description 01/11/2025 Telephone [facility] Cardiology [facility] [address] [facility] [address] [place] [address] Castillo Grace MD 01/10/2025 1:00 PM EDT Lab Draw Station - [address] [place] [phone] Pure hypercholesterolemia 01/09/2025 Telephone [facility] [address] [facility] [address] [place] [address] Castillo Grace MD from Last 3 Months Surgical History [...] Last Done Comments Breast Cancer Screening 1954 Colorectal Cancer Screening: Colonoscopy 1954 DTaP,Tdap,and Td Vaccines (1 - Tdap) 1973 Pneumococcal Vaccine: 50+ Years (1 of 1 - PCV) 2004 Zoster Vaccines (1 of 2) 2004 Falls Risk Assessment 04/24/2022 Hepatitis C Screening [...] Routine 01/10/2025 1:01 PM EDT Pure hypercholesterolemia from Last 3 Months Results * Lipid panel with reflex to direct LDL (01/10/2025 1:01 PM EDT) Cholesterol 123 0 - 200 mg/dL LAB CHEMISTRY METHOD 01/10/2025 3:53 PM EDT [facility] Triglycerides 100 0 - 150 mg/dL LAB CHEMISTRY METHOD 01/10/2025 3:53 PM T [facility] HDL 69 >=40 mg/dL LAB CHEMISTRY METHOD 01/10/2025 3:53 PM EDT [facility] LDL Calculated 34 0 - 100 mg/dL LAB CHEMISTRY METHOD 01/10/2025 3:53 PM T [facility] Comment:Estimated LDL Calcul ated using equation: Total cholesterol - HDL cholesterol - (Triglycerides/5) VLDL Cholesterol Stan 20 mg/dL LAB CHEMISTRY METHOD 01/10/2025 3:53 PM [facility] Non HDL Chol. (LDL+VLDL) 54 <145 mg/dL LAB CHEMISTRY METHOD 01/10/2025 3:53 PM EDT [facility] Chol/HDL Ratio 1.8 0.0 - 4.4 LAB CHEMISTRY METHOD 01/10/2025 3:53 PM EDT [facility] Blood Venous blood specimen / Unknown Venipuncture / Unknown 01/10/2025 1:01 PM EDT 01/10/2025 2:40 PM EDT Castillo Grace MD LAB BLOOD ORDERABLES F inal Result [facility] [address] [place] [address], [place] [phone] * (ABNORMAL) Comprehensive metabolic panel (01/10/2025 1:01 PM EDT) Sodium 140 133 - 145 mmol/L LAB CHEMISTRY METHOD 01/10/2025 3:54 PM [facility] Potassium 4.1 3.5 - 5.5 mmol/L LAB CHEMISTRY METHOD 01/10/2025 3:54 PM [facility] Chloride 106 96 - 110 mmol/L LAB CHEMISTRY METHOD 01/10/2025 3:54 PM [facility] CO2 30 21 - 32 mmol/L LAB CHEMISTRY METHOD 01/10/2025 3:54 PM [facility] Anion Gap 4 3 - 11 LAB CHEMISTRY METHOD 01/10/2025 3:54 PM [facility] Glucose 129(H) 70 - 100 mg/dL LAB CHEMISTRY METHOD 01/10/2025 3:54 PM [facility] BUN 13 5 - 25 mg/dL LAB CHEMISTRY METHOD 01/10/2025 3:54 PM [facility] Creatinine 0.59 0.50 - 1.10 mg/dL LAB CHEMISTRY METHOD 01/10/2025 3:54 PM [facility] eGFR 97 >=60 mL/min/1. 73m2 LAB CHEMISTRY METHOD 01/10/2025 3:54 PM EDT [facility] Comment:Calculation based on the Chronic Kidney Disease Epidemiology Collaboration (CKD-EPI) equation refit without adjustment for race. BUN/Creatinine Ratio 22.0 LAB CHEMISTRY METHOD 01/10/2025 3:54 PM EDT [facility] Calcium 11.2(H) 8.5 - 10.5 mg/dL LAB CHEMISTRY METHOD 01/10/2025 3:54 PM EDT [facility] AST (SGOT) 24 10 - 42 unit/L LAB CHEMISTRY METHOD 01/10/2025 3:54 PM T [facility] ALT (SGPT) 35 10 - 60 unit/L LAB CHEMISTRY METHOD 01/10/2025 3:54 PM EDT [facility] Alkaline Phosphatase 77 42 - 121 unit/L LAB CHEMISTRY METHOD 01/10/2025 3:54 PM [facility] Total Protein 6.9 6.0 - 8.0 g/dL LAB CHEMISTRY METHOD 01/10/2025 3:54 PM EDT [facility] Albumin 4.3 3.2 - 5.0 g/dL LAB CHEMISTRY METHOD 01/10/2025 3:54 PM EDT [facility] Total Bilirubin 0.7 0.0 - 1.4 mg/dL LAB CHEMISTRY METHOD 01/10/2025 3:54 PM EDT [facility] Blood Venous blood specimen / Unknown Venipuncture / Unknown 01/10/2025 1:01 PM EDT 01/10/2025 2:40 PM EDT us Castillo Grace MD LAB BLOOD ORDERABLES F inal Result [facility] [address] [place] [address], [place] [phone] from Last 3 Months Insurance MEDICAID - [place] [facility] MEDICARE ADVANTAGE Care Teams Business Control Specialist Relationship Specialty Start Date End Date Reynaldo Khoury MD [address] [place] [address] PCP - General 07/19/18
--- OUTSIDE RECORDS SUMMARY | 2025-03-18 16:41 | XMS_ITS | Clinical Summary ---
Author Organization [facility] Address [address] [place] [address] Care Team Providers Care Script Writer Name Role Phone Unavailable Primary Care Provider [...] Description 02/05/2025 3:40 PM EDT Office Visit [facility] [address] [place] [address] Dayne Cortez DDS from Last [...] Drug Screen 05/23/2024 Depression Annual Screen 05/23/2024 [id number] ( - season) 2025 Imm-Influenza (#1) 2025 [...] Last 3 Months Insurance DENTAQUEST DENTAL [place] DENT[place] [facility] DENTAL [place] [id number] Advance Directives Documents on File Type Date Recorded Patient Mattress Stuffer Expl anation Advance Directives and Livin g Will 09/18/2021 1:04 PM
== END 2025-03-18 13:46 | disposition home or self-care (01) ==
LOC: HO.HGS 13:08
PROVIDERS: Visit Provider Surgery
DX: L72.0 Epidermal cyst (principal)
CPT/HCPCS: 99024

== ENCOUNTER → 2025-03-18 13:07 | Outpatient (BNVA) | payer MEDICARE, MEDICAID, SELFPAY | PROVIDERS: Visit Provider Surgery | DX: Z48.817 Encounter for surgical aftercare following surgery on the skin and subcutaneous tissue (principal); Z98.890 Other specified postprocedural states | CPT/HCPCS: 99212 ==

== ENCOUNTER 2025-03-27 10:59 | Outpatient (AMB) | payer MEDICARE, MEDICAID, SELFPAY ==
--- NOTE | 2025-03-27 11:01 | MHC.OFFVIS ---
Vital Signs 03/27/25 11:08 Height 5 ft 1 in Weight 118 lb BMI 22.3 BP 136/69 Blood Pressure Location Rt brachial Position Sitting Pulse 82 Intake Visit Reasons: s/p exc X2 chest& back Intake Note: Patient here s/p WLE X2. A) Lt ant chest, B. post Lt back. Patient c/o: reports incision sites healing well. Denies oozing, bleeding. WLE (JACOB): 03-11-2025 Package Line Relief Operator Required: No Accompanied by: daughter Michelle Allergies aspirin Allergy (Unknown, Verified 03/27/25 11:08) red eyes naproxen (Naprosyn) Allergy (Unknown, Verified 03/27/25 11:08) Unknown dexamethasone Adverse Reaction (Intermediate, Verified 03/27/25 11:08) Unknown HPI HPI s/p exc X2 chest& back: Details: Presents with daughter who acts as shovel operator for this evaluation. Overall doing well, they believe that this is healing overall states that there has been some drainage of clear yellow and blood from the excision site. She reports minimal pain complaining of some itching and tingling in the area. Report of isolated subjective fever at home, no temperature daughter states that patient just felt warm. Swelling of the excision site resolved. REPLACED BY [facility] Medical History CVA (cerebral vascular accident) Surgical History (Updated 03/27/25 @ 08:03 by TANIA Chris) Hx of surgical procedure (03/11/25) History of cholecystectomy History of left knee surgery Family History Other Mental health disorder Substance use disorder Social History Housing: House Alcohol intake: never Patient Tobacco Use Status: Never used Tobacco e-Cigarette/Vaping Use: Never Used Second Hand Smoke Exposure: No service: No Current occupational status: retired and disabled Cognitive needs: No Hearing needs: No Vision needs: Yes (glasses) Physical Exam Vital Signs: Last Vital Signs Pulse 82 03/27/25 11:08 BP 136/69 03/27/25 11:08 BMI result Body Mass Index 22.3 Skin Other: Back excision site: Improvement in swelling, fluid collection. There was now a small 0.5 cm opening in the centrum of the incision site with some surrounding scabbing possibly some necrosis of the skin deep to incision on the right lateral side of the incision I was able to express some serosanguineous fluid. Mildly tender to palpation. Chest excision well healed, nontender Assessment & Plan Assessment & Plan (1) Epidermal inclusion cyst: Code(s): L72.0 - Epidermal cyst Category: Medical Plan 69-year-old female returning to the office following excision of to epidermal cysts on the back and chest with Dr. Victoria. Was previously seen in the office for follow up, sutures were removed. Patient likely had seroma or hematoma on the back excision site. There has been some more drainage since in the area does look improved per the patient's daughter who has been doing dressing changes. States it has been blood and clear yellow fluid. States the swelling has improved. Patient's pain has also improved now feeling some itchiness and tingling in the area. On exam the chest excision site is well healed, there was no concern for infection. The back excision appears improved, swelling improved. There was no palpable fluid collection however there is a small open wound with surrounding scabbing from the center of the incision site. This was draining serosanguineous fluid, no purulence noted. There remains some mild induration surrounding the incision site which is likely scar tissue from the excision closure. Given that this has been draining some fluid I dressed this with dura fiber and gauze, covered with tape. Should continue with daily dressing changes. I recommended that she do warm compresses 2 to 3 times a day on this area. There was no purulent drainage or malodor or warmth noted on exam. I do not think this is acutely infected at this point, we will have her follow up in a few weeks for re-evaluation. We discussed return precautions, if she develops fevers, redness around the excision site, drainage or malodor she should return sooner. Coding Level of Care Code Est Pt Level 3 (36876) Diagnoses Epidermal inclusion cyst L72.0
[2025-03-27 11:08] VITALS: BP 136/69; PULSE 82; BMI 22.3
--- OUTSIDE RECORDS SUMMARY | 2025-03-27 13:04 | XMS_ITS | Clinical Summary ---
Author Organization [facility] Address [address] [place] [address] Phone Care Team Providers Care Endoscopy Support Specialist Name Role Phone Reynaldo Khoury MD Primary Care Provider +1- [phone] Allergies Active Allergy Reactions Criticality Noted Date [...] bring a packet of medical records from [facility] in [place] that are as [...] Type Department Care Team Description 01/11/[address] [facility] Cardiology [facility] [address] [facility] [address] [place] [address] Castillo Grace MD 01/10/2025 1:00 PM EDT Lab Draw Station - [address] [place] [phone] Pure hypercholesterolemia 01/09/2025 Telephone [facility] [address] [facility] [address] [place] [address] Castillo Grace MD from Last 3 Months [...] LAB CHEMISTRY METHOD 01/10/2025 3:53 PM EDT [facility] Triglycerides 100 0 - 150 mg/dL LAB CHEMISTRY METHOD 01/10/2025 3:53 PM T [facility] HDL 69 >=40 mg/dL LAB CHEMISTRY METHOD 01/10/2025 3:53 PM EDT [facility] LDL Calculated 34 0 - 100 mg/dL LAB CHEMISTRY METHOD 01/10/2025 3:53 PM T [facility] Comment:Estimated LDL Calcul ated using equation: Total cholesterol - HDL cholesterol - (Triglycerides/5) VLDL Cholesterol Stan 20 mg/dL LAB CHEMISTRY METHOD 01/10/2025 3:53 PM [facility] Non HDL Chol. (LDL+VLDL) 54 <145 mg/dL LAB CHEMISTRY METHOD 01/10/2025 3:53 PM EDT [facility] Chol/HDL Ratio 1.8 0.0 - 4.4 LAB CHEMISTRY METHOD 01/10/2025 3:53 PM EDT [facility] Blood Venous blood specimen / Unknown Venipuncture / Unknown 01/10/2025 1:01 PM EDT 01/10/2025 2:40 PM EDT Castillo Grace MD LAB BLOOD ORDERABLES F inal Result [facility] [address] [place] [address], [place] [phone] * (ABNORMAL) Comprehensive metabolic panel (01/10/2025 1:01 PM EDT) Sodium 140 133 - 145 mmol/L LAB CHEMISTRY METHOD 01/10/2025 3:54 PM [facility] Potassium 4.1 3.5 - 5.5 mmol/L LAB CHEMISTRY METHOD 01/10/2025 3:54 PM [facility] Chloride 106 96 - 110 mmol/L LAB CHEMISTRY METHOD 01/10/2025 3:54 PM [facility] CO2 30 21 - 32 mmol/L LAB CHEMISTRY METHOD 01/10/2025 3:54 PM [facility] Anion Gap 4 3 - 11 LAB CHEMISTRY METHOD 01/10/2025 3:54 PM [facility] Glucose 129(H) 70 - 100 mg/dL LAB CHEMISTRY METHOD 01/10/2025 3:54 PM [facility] BUN 13 5 - 25 mg/dL LAB CHEMISTRY METHOD 01/10/2025 3:54 PM [facility] Creatinine 0.59 0.50 - 1.10 mg/dL LAB CHEMISTRY METHOD 01/10/2025 3:54 PM [facility] eGFR 97 >=60 mL/min/1. 73m2 LAB CHEMISTRY METHOD 01/10/2025 3:54 PM EDT [facility] Comment:Calculation based on the Chronic Kidney Disease Epidemiology Collaboration (CKD-EPI) equation refit without adjustment for race. BUN/Creatinine Ratio 22.0 LAB CHEMISTRY METHOD 01/10/2025 3:54 PM EDT [facility] Calcium 11.2(H) 8.5 - 10.5 mg/dL LAB CHEMISTRY METHOD 01/10/2025 3:54 PM EDT [facility] AST (SGOT) 24 10 - 42 unit/L LAB CHEMISTRY METHOD 01/10/2025 3:54 PM T [facility] ALT (SGPT) 35 10 - 60 unit/L LAB CHEMISTRY METHOD 01/10/2025 3:54 PM EDT [facility] Alkaline Phosphatase 77 42 - 121 unit/L LAB CHEMISTRY METHOD 01/10/2025 3:54 PM [facility] Total Protein 6.9 6.0 - 8.0 g/dL LAB CHEMISTRY METHOD 01/10/2025 3:54 PM EDT [facility] Albumin 4.3 3.2 - 5.0 g/dL LAB CHEMISTRY METHOD 01/10/2025 3:54 PM EDT [facility] Total Bilirubin 0.7 0.0 - 1.4 mg/dL LAB CHEMISTRY METHOD 01/10/2025 3:54 PM EDT [facility] Blood Venous blood specimen / Unknown Venipuncture / Unknown 01/10/2025 1:01 PM EDT 01/10/2025 2:40 PM EDT us Castillo Grace MD LAB BLOOD ORDERABLES F inal Result [facility] [address] [place] [address], [place] [phone] from Last 3 Months Insurance [place]ID - [place] [facility] MEDIC[place] ADVANTAGE Care Teams Endoscopy Support Specialist Relationship Specialty Start Date End Date Reynaldo Khoury MD [address] [place] [address] PCP - General 07/19/18
--- OUTSIDE RECORDS SUMMARY | 2025-03-27 13:04 | XMS_ITS | Clinical Summary ---
Author Organization [facility] Address [address] [place] [address] Care Team Providers Care Coal Trammer Name Role Phone Unavailable Primary Care Provider [...] Description 02/05/2025 3:40 PM EDT Office Visit [facility] [address] [place] [address] Dayne Cortez DDS from Last [...] Drug Screen 05/23/2024 Depression Annual Screen 05/23/2024 [id number] ( - season) 2025 Imm-Influenza (#1) 2025 [...] Last 3 Months Insurance DENTAQUEST DENTAL MEDICAID [place] MEDICAID DENTAL [facility] DENTAL [place] [id number] Advance Directives Documents on File Type Date Recorded Patient Lay Out Former Expl anation Advance Directives and Livin g Will 09/18/2021 1:04 PM
--- OUTSIDE RECORDS SUMMARY | 2025-03-27 13:04 | XMS_ITS | Encounter Summary ---
Author Organization [facility] Address [address] [place] [address] Care Team Providers Care Talent Scout Name Role Phone Unavailable Primary Care Provider Unavailabl e Encounter Details Date Type Department Care Team (Late st Contact Info) Description 10/28/2021 Dental Interim Note [facility] [address] [place] [phone] Ashley Ashford DMD [address] [place] [address] Social History Tobacco Use Types Packs/Day Years [...]
== END 2025-03-27 11:21 | disposition home or self-care (01) ==
LOC: HO.HGS 11:00
DX: L72.0 Epidermal cyst (principal)
CPT/HCPCS: 99213

== ENCOUNTER → 2025-03-27 10:59 | Outpatient (BNVA) | payer MEDICARE, MEDICAID, SELFPAY | DX: Z98.890 Other specified postprocedural states (principal); L72.0 Epidermal cyst | CPT/HCPCS: 99212 ==

== ENCOUNTER 2025-04-23 11:20 | Outpatient (AMB) | payer MEDICARE, MEDICAID, SELFPAY ==
[2025-04-23 11:34] VITALS: BP 127/60; PULSE 75; BMI 22.5
--- NOTE | 2025-04-23 11:34 | MHC.OFFVIS ---
Vital Signs 04/23/25 11:34 Height 5 ft 1 in Weight 119 lb BMI 22.5 BP 127/60 Blood Pressure Location Rt brachial Position Sitting Pulse 75 Intake Visit Reasons: s/p exc X2 chest& back Intake Note: Patient presents for a wound check, s/p excision x2 lesion, chest and back. Pt c/o; reports no complaints at this time. Blue Leather Sorter Required: No Accompanied by: daghter Allergies aspirin Allergy (Unknown, Verified 04/23/25 11:35) red eyes naproxen (Naprosyn) Allergy (Unknown, Verified 04/23/25 11:35) Unknown dexamethasone Adverse Reaction (Intermediate, Verified 04/23/25 11:35) Unknown HPI HPI s/p exc X2 chest& back: Details: Doing well. Denies fevers at home. No concerns about the chest excision site. Daughter who was present for the visit states that the back incision is also getting better has occasionally drained a few times in the past week but there was a scab on the incision. [facility] Medical History CVA (cerebral vascular accident) Surgical History Hx of surgical procedure (03/11/25) History of cholecystectomy History of left knee surgery Family History Other Mental health disorder Substance use disorder Social History Housing: House Alcohol intake: never Patient Tobacco Use Status: Never used Tobacco e-Cigarette/Vaping Use: Never Used Second Hand Smoke Exposure: No service: No Current occupational status: retired and disabled Cognitive needs: No Hearing needs: No Vision needs: Yes (glasses) Physical Exam Vital Signs: Last Vital Signs Pulse 75 04/23/25 11:34 BP 127/60 04/23/25 11:34 BMI result Body Mass Index 22.5 Skin Other: Back excision site: Swelling resolved, no fluid collection There is a small pinpoint scab along the incision line. No erythema, no discharge, nontender. Chest excision well healed, nontender Assessment & Plan Assessment & Plan (1) Epidermal inclusion cyst: Code(s): L72.0 - Epidermal cyst Category: Medical Plan 69-year-old female returning to the office following excision of to epidermal cysts on the back and chest with Dr. Victoria. Area continues to improve. Has drains small amounts of clear fluid a few times since last visit but now his scabbed over. Overall improving. On exam the chest excision site is well healed, there was no concern for infection. The back excision appears improved, swelling resolved, no further fluid collection. Site appears to be healing well, there was 1 small scab along the incision site, there were no evidence of infection at this time. She no longer needs to do any dressings to this area. At this point no longer requiring follow up, can follow up as needed with any concerns in the future. Coding Level of Care Code Est Pt Level 3 (40150) Diagnoses Epidermal inclusion cyst L72.0
--- OUTSIDE RECORDS SUMMARY | 2025-04-23 13:32 | XMS_ITS | Clinical Summary ---
Author Organization [facility] [employer] [facility] Address [address] [place] [address] Phone Care Team Providers Care Vice President Process Name Role Phone Reynaldo Khoury MD Primary Care Provider +1- [phone] Allergies Active Allergy Reactions Criticality Noted Date [...] bring a packet of medical records from [facility] in [place] that are as recent as March 2021. [...] Date TIA (transient ischemic attack) 08/27/2021 09/17/2024 Surgical History Surgery Date Site/Laterality Comments ANGIOPLASTY [...] Recently Relevant to Health Maintenance Results * Lipid panel with reflex to direct LDL (01/10/2025 1:01 PM EDT) Cholesterol 123 0 - 200 mg/dL LAB CHEMISTRY METHOD 01/10/2025 3:53 PM EDT [facility] Triglycerides 100 0 - 150 mg/dL LAB CHEMISTRY METHOD 01/10/2025 3:53 PM EDT [facility] HDL 69 >=40 mg/dL LAB CHEMISTRY METHOD 01/10/2025 3:53 PM EDT [facility] LDL Calculated 34 0 - 100 mg/dL LAB CHEMISTRY METHOD 01/10/2025 3:53 PM EDT [facility] Comment:Estimated LDL Calcul ated using equation: Total cholesterol - HDL cholesterol - (Triglycerides/5) VLDL Cholesterol Stan 20 mg/dL LAB CHEMISTRY METHOD 01/10/2025 3:53 PM EDT [facility] Non HDL Chol. (LDL+VLDL) 54 <145 mg/dL LAB CHEMISTRY METHOD 01/10/2025 3:53 PM EDT [facility] Chol/HDL Ratio 1.8 0.0 - 4.4 LAB CHEMISTRY METHOD 01/10/2025 3:53 PM EDT [facility] Blood Venous blood specimen / Unknown Venipuncture / Unknown 01/10/2025 1:01 PM EDT 01/10/2025 2:40 PM EDT us Castillo Grace MD LAB BLOOD ORDERABLES F inal Result [facility] [address] [place] [address], * (ABNORMAL) Comprehensive metabolic panel (01/10/2025 1:01 PM EDT) Sodium 140 133 - 145 mmol/L LAB CHEMISTRY METHOD 01/10/2025 3:[address] [facility] Potassium 4.1 3.5 - 5.5 mmol/L LAB CHEMISTRY METHOD 01/10/2025 3:[address] [facility] Chloride 106 96 - 110 mmol/L LAB CHEMISTRY METHOD 01/10/2025 3:[address] [facility] CO2 30 21 - 32 mmol/L LAB CHEMISTRY METHOD 01/10/2025 3:[address] [facility] Anion Gap 4 3 - 11 LAB CHEMISTRY METHOD 01/10/2025 3:[address] [facility] Glucose 129(H) 70 - 100 mg/dL LAB CHEMISTRY METHOD 01/10/2025 3:[address] [facility] BUN 13 5 - 25 mg/dL LAB CHEMISTRY METHOD 01/10/2025 3:[address] [facility] Creatinine 0.59 0.50 - 1.10 mg/dL LAB CHEMISTRY METHOD 01/10/2025 3:[address] [facility] eGFR 97 >=60 mL/min/1. 73m2 LAB CHEMISTRY METHOD 01/10/2025 3:[address] [facility] Comment:Calculation based on the Chronic Kidney Disease Epidemiology Collaboration (CKD-EPI) equation refit without adjustment for race. BUN/Creatinine Ratio 22.0 LAB CHEMISTRY METHOD 01/10/2025 3:[address] [facility] Calcium 11.2(H) 8.5 - 10.5 mg/dL LAB CHEMISTRY METHOD 01/10/2025 3:[address] [facility] AST (SGOT) 24 10 - 42 unit/L LAB CHEMISTRY METHOD 01/10/2025 3:[address] [facility] ALT (SGPT) 35 10 - 60 unit/L LAB CHEMISTRY METHOD 01/10/2025 3:54 PM EDT [facility] Alkaline Phosphatase 77 42 - 121 unit/L LAB CHEMISTRY METHOD 01/10/2025 3:54 PM EDT [facility] Total Protein 6.9 6.0 - 8.0 g/dL LAB CHEMISTRY METHOD 01/10/2025 3:54 PM EDT [facility] Albumin 4.3 3.2 - 5.0 g/dL LAB CHEMISTRY METHOD 01/10/2025 3:54 PM EDT [facility] Total Bilirubin 0.7 0.0 - 1.4 mg/dL LAB CHEMISTRY METHOD 01/10/2025 3:54 PM EDT [facility] Blood Venous blood specimen / Unknown Venipuncture / Unknown 01/10/2025 1:01 PM EDT 01/10/2025 2:40 PM EDT Castillo Grace MD LAB BLOOD ORDERABLES F inal Result [facility] [address] [place] [address], from Last 3 Months or Most Recently Relevant to Health Maintenance Insurance [place]ID - [place] [employer] MEDICARE ADVANTAGE Care Teams Vice President Process Relationship Specialty Start Date End Date Reynaldo Khoury MD [facility] [address] [place] [address] PCP - General 07/19/18
== END 2025-04-23 11:45 | disposition home or self-care (01) ==
LOC: HO.HGS 11:21
DX: L72.0 Epidermal cyst (principal)
CPT/HCPCS: 99213

== ENCOUNTER → 2025-04-23 11:20 | Outpatient (BNVA) | payer MEDICARE, MEDICAID, SELFPAY | DX: L72.0 Epidermal cyst (principal) | CPT/HCPCS: 99212 ==